=== PATIENT | female | born 1945 | race Hispanic/Latino ===

== ENCOUNTER 2018-06-30 09:37 | Inpatient (IN) | payer MEDICARE, OTHER ==
[2018-06-30 09:46] VITALS: BMI 29.2
[2018-06-30] MEDS: Morphine 4 mg/ml ISec IVP STA ×2 (10:58→11:21)
[2018-06-30] MEDS ORDERED: Oxycodone/Acetaminophen 5/325 mg Tab PO STA (11:15)
[2018-06-30 11:37] LABS: BASO # 0.01 K/mm3 (0.0-2.0); BASO % 0.1 % (0.0-3.0); EOS % 0.2 % (1.5-5.0); GRAN # 8.4 (1.4-6.5); GRAN % 87.2 % (50.0-68.0); HEMOGLOBIN 13.3 g/dL (12.0-16.0); LYMPH # 0.9 (1.2-3.4); LYMPH % 9.6 % (22.0-35.0); MEAN CELL VOLUME 87.2 fl (80.0-105.0); MEAN CORPUSCULAR HEMOGLOBIN 28.4 pg (25.0-35.0); MEAN CORPUSCULAR HGB CONC 32.6 g/dl (31.0-37.0); MEAN PLATELET VOLUME 9.1 fl (7.0-11.0); MONO # 0.3 (0.1-0.6); MONO % 2.9 % (1.0-6.0); RBC 4.68 10^6/uL (3.5-6.1); WHITE BLOOD COUNT 9.6 10^3/uL (4.5-11.0)
[2018-06-30 11:49] LABS: ALB/GLOB RATIO 1.2 (1.1-1.8); ALBUMIN 3.7 g/dL (3.0-4.8); ALT/SGPT 31 U/L (7-56); AST/SGOT 27 U/L (14-36); BLOOD UREA NITROGEN 26 mg/dL (7-21); CALCIUM 9.3 mg/dL (8.4-10.5); GFR NON-AFRICAN AMERICAN > 60
[2018-06-30 12:02] LABS: URINE BILIRUBIN NEGATIVE (NEGATIVE); URINE BLOOD SMALL (NEGATIVE); URINE GLUCOSE (UA) NEGATIVE (NEGATIVE); URINE LEUKOCYTE ESTERASE NEGATIVE Leu/uL (NEGATIVE); URINE PROTEIN NEGATIVE mg/dL (<30 mg/dL); URINE UROBILINOGEN 0.2 E.U./dL (<1 E.U./dL)
--- NOTE | 2018-06-30 12:04 | CT ---
Date of service: 06/30/2018 CT lumbar spine without IV contrast Indication: back pain Comparison: None available Technique: Noncontrast axial images of the lumbar spine were provided. Sagittal and coronal reformatted images were generated and reviewed. This CT exam was performed using 1 or more of the following dose reduction techniques: Automated exposure control, adjustment of the MAA and/or kV according to patient size, and/or use of iterative reconstruction technique. Total exam DLP: 1319.07 MGy-cm Findings: Atherosclerotic calcification of the aorta and branches. Diffuse osseous demineralization limits evaluation for acute fracture lines. Loss of height of L3 vertebral body, age indeterminate compression fracture deformity. Scoliosis of the lumbar spine convex the left. Intervertebral disc space narrowing most severe at L2-L3. Evidence of posterior disc bulges at L2-L3, L3-L4, L4-L5, and L5-S1. Paraspinal soft tissues appear unremarkable. Limited visualization of the intrathoracic and intra-abdominal contents: Partially imaged left lower lobe consolidation. Bibasilar atelectasis. Left calcified pleural plaque present suggesting asbestos related pleural disease. Cholecystectomy clips. Impression: Diffuse osseous demineralization. Loss of height of L3 vertebral body consistent with age indeterminate compression fracture deformity. MRI may be considered for further evaluation if indicated. Multilevel degenerative changes. Intervertebral disc space narrowing most severe at L2-L3. Evidence of posterior disc bulges at L2-L3, L3-L4, L4-L5, and L5-S1. MRI may be considered for further evaluation if indicated. Partially imaged left lower lobe consolidation. Left calcified pleural plaques suggest asbestos related pleural disease.
--- NOTE | 2018-06-30 12:20 | ED PDOC ---
Arrival/HPI - General Chief Complaint: Back Pain Historian: Patient - History of Present Illness Narrative History of Present Illness (Text): 06/30/18 12:00 73yo female with pmhx of hypothyroid, lupus, Lung CA who present with complaint of right buttocks pain that radiates to her lower leg. States she was seen at [facility] for the pain last week and after LS xray told she have sciatica. States she was given Tylenol with codeine, TOP Lidocaine, and flexeril. Notes that she took these medications, but the pain is worse. Reports inability to ambulate. States pain is worse with any type of movement. States she is unable to leave to bed secondary to the pain and her is unable to help her. She denies focal weakness, saddle anesthesia, ripping/tearing upper back pain, urinary/fecal incontinence, urinary symptoms, hematuria, fever, abdominal pain, nausea, any other complaint. Past Medical History - Provider Review Nursing Documentation Reviewed: Yes - Pulmonary Hx Lung Cancer: Yes Other/Comment: Pulmonary fibrosis - Endocrine/Metabolic Hx Hypothyroidism: Yes Hx Systemic Lupus Erythematosus: Yes - Psychiatric Hx Substance Use: No - Surgical History Hx Mastectomy: Yes (R breast CA/mastectomy) - Anesthesia Hx Anesthesia: Yes Hx Anesthesia Reactions: No Hx Malignant Hyperthermia: No Family/Social History - Physician Review Nursing Documentation Reviewed: Yes Family/Social History: Unknown Family HX Smoking Status: Never Smoked Hx Alcohol Use: No Hx Substance Use: No Allergies/Home Meds Allergies/Adverse Reactions: Allergies morphine Adverse Reaction (Mild, Verified 06/30/18 18:56) heart palpitations Home Medications: Home Meds Medication Instructions Recorded Confirmed Calcium Phosphate Trib/Vit D3 1 tab PO DAILY 06/30/18 06/30/18 [Citracal + D3 Gummies] RX: Anastrozole [Arimidex 1 mg Tab] 1 tab PO DAILY 06/30/18 06/30/18 RX: Azathioprine [Azasan] 50 mg PO TID 06/30/18 06/30/18 RX: Hydroxychloroquine Sulfate 200 mg PO DAILY 06/30/18 06/30/18 [Plaquenil] RX: Levothyroxine [Synthroid] 125 mcg PO DAILY 06/30/18 06/30/18 RX: amLODIPine [Norvasc] 5 mg PO DAILY 06/30/18 06/30/18 RX: predniSONE [predniSONE Tab] 10 mg PO TID 06/30/18 06/30/18 Review of Systems - Physician Review All systems were reviewed & negative as marked: Yes - Review of Systems Constitutional: Normal Eyes: Normal ENT: Normal Respiratory: Normal Cardiovascular: Normal Gastrointestinal: Normal Genitourinary Female: Normal Musculoskeletal: Back Pain Skin: Normal Neurological: Normal Endocrine: Normal Hemo/Lymphatic: Normal Psychiatric: Normal Physical Exam Vital Signs Reviewed: Yes Vital Signs Temp Pulse Resp BP Pulse Ox 06/30/18 09:49 98.6 F 83 18 134/78 100 Temperature: Afebrile Blood Pressure: Normal Pulse: Regular Respiratory Rate: Normal Appearance: Positive for: Well-Appearing, Non-Toxic, Comfortable Pain Distress: None Mental Status: Positive for: Alert and Oriented X 3 - Systems Exam Head: Present: Atraumatic, Normocephalic Pupils: Present: PERRL Extroacular Muscles: Present: EOMI Conjunctiva: Present: Normal Mouth: Present: Moist Mucous Membranes Neck: Present: Normal Range of Motion Respiratory/Chest: Present: Clear to Auscultation, Good Air Exchange. No: Respiratory Distress, Accessory Muscle Use Cardiovascular: Present: Regular Rate and Rhythm, Normal S1, S2. No: Murmurs Abdomen: No: Tenderness, Distention, Peritoneal Signs Back: Present: Pain with Leg Raise (Right leg). No: Midline Tenderness, Paraspinal Tenderness Upper Extremity: Present: Normal Inspection. No: Cyanosis, Edema Lower Extremity: Present: Normal Inspection. No: Edema Neurological: Present: GCS=15, CN II-XII Intact, Speech Normal Skin: Present: Warm, Dry, Normal Color. No: Rashes Psychiatric: Present: Alert, Oriented x 3, Normal Insight, Normal Concentration Medical Decision Making ED Course and Treatment: 06/30/18 18:58 73yo female [facility] for sharp constant right buttocks pain radiating to her lower leg. Decadron, Percocet, valium Labs UA LS CT EKG EKG On re evaluation pt continued to complain of pain. Unable to ambulate. Labs was unremarkable. She had blood in her UA. Urine culture added LS CT Findings: Atherosclerotic calcification of the aorta and branches. Diffuse osseous demineralization limits evaluation for acute fracture lines. Loss of height of L3 vertebral body, age indeterminate compression fracture deformity. Scoliosis of the lumbar spine convex the left. Intervertebral disc space narrowing most severe at L2-L3. Evidence of posterior disc bulges at L2-L3, L3-L4, L4-L5, and L5-S1. Paraspinal soft tissues appear unremarkable. Limited visualization of the intrathoracic and intra-abdominal contents: Partially imaged left lower lobe consolidation. Bibasilar atelectasis. Left calcified pleural plaque present suggesting asbestos related pleural disease. Cholecystectomy clips. Impression: Diffuse osseous demineralization. Loss of height of L3 vertebral body consistent with age indeterminate compression fracture deformity. MRI may be considered for further evaluation if indicated. Multilevel degenerative changes. Intervertebral disc space narrowing most severe at L2-L3. Evidence of posterior disc bulges at L2-L3, L3-L4, L4-L5, and L5-S1. MRI may be considered for further evaluation if indicated. Partially imaged left lower lobe consolidation. Left calcified pleural plaques suggest asbestos related pleural disease. PT will be admitted for inability to ambulate and intractable pain Case was DW Dr. Herrera, who is covering Dr. freeman and she accepted pt for admission. - Lab Interpretations Lab Results: 06/30/18 11:20 06/30/18 11:20 Lab Results 06/30/18 11:20: Sodium 138, Potassium 4.0, Chloride 101, Carbon Dioxide 30, Anion Gap 10, BUN 26 H, Creatinine 0.8, Est GFR ( Amer) > 60, Est GFR (Non-Af Amer) > 60, Random Glucose 89, Calcium 9.3, Total Bilirubin 0.8, AST 27, ALT 31, Alkaline Phosphatase 102, Total Protein 6.9, Albumin 3.7, Globulin 3.2, Albumin/Globulin Ratio 1.2 06/30/18 11:20: WBC 9.6, RBC 4.68, Hgb 13.3, Hct 40.8, MCV 87.2, MCH 28.4, MCHC 32.6, RDW 17.0 H, Plt Count 256, MPV 9.1, Gran % 87.2 H, Lymph % (Auto) 9.6 L, Boundary % (Auto) 2.9, Eos % (Auto) 0.2 L, Baso % (Auto) 0.1, Gran # 8.40 H, Lymph # (Auto) 0.9 L, Boundary # (Auto) 0.3, Eos # (Auto) 0.0, Baso # (Auto) 0.01 - RAD Interpretation Radiology Orders: 06/30/18 10:39 LUMBAR SPINE W/O CONTRAST [CT] Stat - Medication Orders Current Medication Orders: Discontinued Medications Dexamethasone (Decadron Inj) 10 mg IVP STAT STA Stop: 06/30/18 10:41 Last Admin: 06/30/18 10:57 Dose: 10 mg IVP Administration Document 06/30/18 10:57 ANN (Rec: 06/30/18 10:58 [email or web address]) Charges for Administration # of IVP Administrations 1 Diazepam (Valium) 5 mg PO ONCE ONE; Protocol Stop: 06/30/18 10:41 Last Admin: 06/30/18 10:57 Dose: 5 mg Morphine Sulfate (Morphine) 4 mg IVP STAT STA Stop: 06/30/18 10:40 Last Admin: 06/30/18 11:21 Dose: Not Given Non-Admin Reason: Patient Refused Oxycodone/Acetaminophen (Percocet 5/325 Mg Tab) 1 tab PO STAT STA Stop: 06/30/18 11:16 Last Admin: 06/30/18 11:36 Dose: 1 tab MAR Pain Assessment Document 06/30/18 11:36 ANN (Rec: 06/30/18 11:37 [email or web address]) Pain Reassessment Is this a pain reassessment? Yes Presence of Pain Presence of Pain Yes Pain Scale Used Protocol: PSCALES Pain Scale Used Numeric Location Left, Right or Bilateral Right Upper or Lower Lower Pain Location Body Site Back Description Intensity of Pain at present 10 Disposition/Present on Arrival - Present on Arrival Any Indicators Present on Arrival: No History of DVT/PE: No History of Uncontrolled Diabetes: No Urinary Catheter: No History of Decub. Ulcer: No History Surgical Site Infection Following: None - Disposition Have Diagnosis and Disposition been Completed?: Yes Diagnosis: Intractable back pain, Unable to ambulate Disposition: HOSPITALIZED Disposition Time: 12:40 Patient Plan: Admission Patient Problems: Current Active Problems Problem Status Onset Intractable back pain Acute Unable to ambulate Acute Condition: FAIR
[2018-06-30 12:30] LABS: URINE APPEARANCE CLEAR (CLEAR); URINE COLOR YELLOW (YELLOW)
[2018-06-30 12:32] LABS: INR 1.03; PROTHROMBIN TIME 11.9 SECONDS (9.4-12.5)
[2018-06-30 12:37] LABS: URINE BACTERIA MOD (NEG); URINE WBC 0 - 2 /hpf (0-6)
[2018-06-30] MEDS ORDERED: Sodium Chloride 0.9% 1,000 ML IV STA (12:47)
[2018-06-30] MEDS ORDERED: Morphine 2 mg/ml ISec IVP PRN (15:34)
[2018-06-30] MEDS ORDERED: Levothyroxine 125 MCG TAB PO SCH (15:45)
[2018-06-30] MEDS ORDERED: Oxycodone/Acetaminophen 5/325 mg Tab PO PRN (16:08)
[2018-06-30] MEDS ORDERED: Dexamethasone 4 MG in Sodium Chloride 0.9% 50 ML IV ONE (17:18)
[2018-06-30] MEDS: Lidocaine 5% Patch TD SCH (17:50)
--- NOTE | 2018-06-30 20:45 | CON ---
DATE OF CONSULTATION: 06/30/2018 CHIEF COMPLAINT: Back pain. HISTORY OF PRESENT ILLNESS: This is a 73-year-old woman with history of hypothyroidism, lupus, lung cancer in the past, who presented with low back pain radiating down the right buttock, down the right leg, waking with paresthesias. Her low back pain is aggravated by prolonged positions. She was given Tylenol with Codeine, topical lidocaine, and Flexeril, which helped seldomly, but the pain started to get worse, associated with prolonged positions and bending. She has had a CAT scan of the lumbosacral spine, which showed diffuse degenerative disk disease at multiple levels from L2 to L5. She is able to lift up her legs. There is no focal weakness of the hip flexors or lower extremities. She is currently on Percocet for pain and morphine. She has Plaquenil for her lupus, longstanding. PAST MEDICAL HISTORY: As above. SOCIAL HISTORY: No illicit drug use, smoking, or EtOH abuse. ALLERGIES: NO KNOWN DRUG ALLERGIES. MEDICATIONS: Reviewed by nurses' reconciliation sheet. FAMILY HISTORY: Noncontributory. REVIEW OF SYSTEMS: Fourteen-point review of systems is negative except as per the HPI. LABORATORY DATA: Sodium is 138, potassium 4, chloride 101, carbon dioxide 30, BUN of 26, creatinine of 0.8, random glucose of 89. PHYSICAL EXAMINATION VITAL SIGNS: Temperature of 99, pulse rate 60, blood pressure 156/76, respiratory rate 20, oxygen saturation 97% on room air. GENERAL: The patient is sitting up in bed, in no acute distress. HEENT: Head is atraumatic, normocephalic. PERRLA. Extraocular muscles intact. NECK: Supple. No JVD. No adenopathy noted. LUNGS: Clear to auscultation. No adventitious sounds. HEART: S1 and S2, normal rate and rhythm. No murmurs, rubs or gallops. ABDOMEN: Soft, nontender and nondistended. Bowel sounds present. EXTREMITIES: No clubbing. No cyanosis. Peripheral pulses 2+ felt bilaterally. NEUROLOGIC: The patient is alert and oriented to person, place, month and year. Speech is fluent without any errors. Cranial nerves II through XII intact. Motor exam: Moves all extremities equally. No pronator drift seen. Sensory exam: Light touch, pinprick, proprioception, and vibration are intact, except for some evident decreased vibration of the toes with mild neuropathy from the long history of lupus. DTRs are 2+ throughout and 1 at both knees and ankles. Coordination: [id number] intact. No dysmetria noted. Musculoskeletal: She has lumbosacral tightness. IMPRESSION: Low back pain is secondary to chronic lumbosacral neuritis from multilevel degenerative disk disease from L1 to S1. At this time, we recommend: 1. Dexamethasone IV push 4 mg to decrease the intensity of pain. 2. Lyrica 50 mg p.o. b.i.d. for neuropathic relief. 3. Physical therapy as an outpatient for lumbosacral stretch, therapeutic exercise, and myofascial pain relief techniques. 4. MRI of the lumbosacral spine. Follow up with us in outpatient office. Thank you for this consult. Freddie Holly MD
--- NOTE | 2018-07-01 01:06 | CP.PCM.PN ---
Subjective - Date & Time of Evaluation Date of Evaluation: 07/01/18 Time of Evaluation: 01:05 - Subjective Subjective: # 22 angiocath was inserted inleft hand. Objective - Vital Signs/Intake and Output Vital Signs (last 24 hours): Temp Pulse Resp BP Pulse Ox 97.7 F 54 L 16 147/75 98 07/01/18 00:00 07/01/18 00:00 07/01/18 00:00 07/01/18 00:00 07/01/18 00:00 - Medications Medications: Current Medications Amlodipine Besylate (Norvasc) 5 mg PO DAILY [facility] Last Admin: 06/30/18 16:20 Dose: Not Given Hydroxychloroquine Sulfate (Plaquenil) 200 mg PO DAILY [facility]; Protocol Levothyroxine Sodium (Synthroid) 125 mcg PO DAILY [facility] Last Admin: 06/30/18 16:21 Dose: Not Given Lidocaine (Lidoderm) 1 ea TD DAILY [facility] Last Admin: 06/30/18 17:50 Dose: 1 ea Morphine Sulfate (Morphine) 2 mg IVP Q4H PRN PRN Reason: Pain, moderate (4-7) Oxycodone/Acetaminophen (Percocet 5/325 Mg Tab) 1 tab PO Q4H PRN PRN Reason: Pain, Mild (1-3) Stop: 07/03/18 16:09 Prednisone (Prednisone Tab) 20 mg PO DAILY [facility] Pregabalin (Lyrica) 50 mg PO BID [facility] Last Admin: 06/30/18 17:49 Dose: 50 mg - Labs Labs: 06/30/18 11:20 06/30/18 11:20 PT 11.9 SECONDS (9.4-12.5) 06/30/18 11:20 INR 1.03 06/30/18 11:20 APTT 21.0 Seconds (25.1-36.5) L 06/30/18 11:20
[2018-07-01] MEDS ORDERED: Levothyroxine 125 MCG TAB PO ONE (08:30)
[2018-07-01] MEDS: Lidocaine 5% Patch TD SCH (09:28)
--- NOTE | 2018-07-01 10:29 | HP ---
DATE OF EXAM: 06/30/2018 HISTORY OF PRESENT ILLNESS: Ms. Ramos is a 73-year-old female presented to the ED with right buttock pain radiating to the right leg. She has history of lung cancer. She was admitted to [facility] for similar pain last week, and she was told that she has sciatica. She was given Tylenol, codeine and muscle relaxant. She is unable to ambulate because of the pain. No fecal incontinence. No urinary incontinence. No fever, no cough with expectoration. Hypothyroidism, currently controlled with current medications. She also has history of lupus, no active issues. History of pulmonary fibrosis, currently on steroids. Sees the Pulmonary at [place]. PAST MEDICAL HISTORY: Pulmonary fibrosis, lung cancer, breast cancer in remission status post right-sided mastectomy. PAST SURGICAL HISTORY: Right mastectomy. FAMILY HISTORY: Noncontributory. PERSONAL HISTORY: Never smoked. No history of alcohol abuse. ALLERGIES: MORPHINE CAUSES PALPITATIONS. HOME MEDICATIONS: Calcium, Arimidex 1 mg, azathioprine 50 mg p.o. 3 times daily, hydroxychloroquine 200 mg daily, Synthroid 125 mcg daily, amlodipine 5 mg daily, prednisone 10 mg p.o. 3 times daily. REVIEW OF SYSTEMS: As per HPI. Rest of 12 point review of systems reviewed, negative. PHYSICAL EXAMINATION: GENERAL: Comfortable in bed, in no acute distress. VITAL SIGNS: Temperature 98.6, heart rate 83 per minute, respiratory rate 18 per minute, blood pressure 130/78. HEENT: Pallor positive. NECK: No lymphadenopathy. CHEST: Air entry present and equal bilaterally. No added sound. CARDIOVASCULAR: S1, S2 normal. No murmur. No gallop. ABDOMEN: Soft, nontender. No hepatosplenomegaly. EXTREMITIES: No edema. SKIN: Warm and dry. NEUROLOGIC: Alert, oriented x3. No focal sensory motor deficits. Speech normal. Gait unable to ambulate. CT spine, diffuse demineralization, loss of height of L2 vertebral body with compression fracture, multilevel degenerative disease. LABORATORY DATA: White count 9.6, hemoglobin 13.3, hematocrit 40.8, platelet count 256,000. Sodium 138, potassium 4, BUN 26, creatinine 0.8 and glucose 89. ASSESSMENT: 1. Intractable back pain. 2. History of lung cancer. 3. History of breast cancer. 4. Lupus. 5. Hypothyroidism. PLAN: She will be admitted to the hospital. Pain control with morphine 2 mg IV every 4 hours, Percocet for moderate pain 5/325 every 4 hours p.r.n. We will give prednisone 20 mg daily, doses could not be confirmed. With Pulmonary, she does not have anymore contact information of the Pulmonary doctor. Neurology consultation, Dr. Holly requested for sciatica, rule out spinal abnormality. Lyrica was started 500 mg p.o. twice daily, Synthroid 125 mcg daily. We will continue Plaquenil 200 mg daily. We will do SPEP immunofixation, kappa lambda light chain assay. Mimi Herrera MD
--- NOTE | 2018-07-01 23:38 | CON ---
DATE OF CONSULTATION: 07/01/2018 REFERRING PHYSICIAN: Mimi Herrera MD REASON FOR CONSULTATION: Chronic obstructive lung disease, history of recurrent lung cancer. HISTORY OF PRESENT ILLNESS: This is a 73-year-old female with known history of pulmonary fibrosis, history of lung nodule, requiring wedge resection, has a recurrent of another nodule, ended up with radiation therapy, also had a breast cancer, had a mastectomy. She has a severe obstructive lung disease, being followed by Dr. De Jesus at [facility]. According to the patient, she has been on and off steroids all her life. Recently, with worsening lung function, her prednisone was started at 60 mg and tapered down to 40. Now comes in to [facility] with radiculopathy. Also complaining about shortness of breath. Does have snoring, daytime sleepy and tired, may have GERD. PAST MEDICAL HISTORY: Pulmonary fibrosis, lung cancer, breast cancer, may have GERD, suspected sleep apnea syndrome. FAMILY HISTORY: No significant cardiopulmonary disease reported. SOCIAL HISTORY No active smoking. No alcohol use. MEDICATIONS: She is on Arimidex 1 mg daily, Colace 100 mg daily, Iris 150 mg daily, lidocaine patch, Lyrica 50 mg twice a day, morphine 2 mg every 4 hours p.r.n., Norvasc 5 mg daily, Percocet 5/324 one tablet every 4 hours p.r.n., Plaquenil 200 mg daily, prednisone 20 mg daily, Protonix 40 mg daily, Synthroid 125 mcg a.c.b. ALLERGIES: MORPHINE. REVIEW OF SYSTEMS: No headache, no rhinitis. Short of breath with exertion. No chest pain. No nausea. Admits to have GERD. No abdominal pain. Has a right buttock and leg discomfort. No dysuria. PHYSICAL EXAMINATION: GENERAL: No acute distress. VITAL SIGNS: Temperature is 98, heart rate 70, respiratory rate is 20, blood pressure 138/74, pulse ox 97% room air. HEENT: Moist mucous membranes. Crowded airway. Mallampati score is 4. NECK: Supple. No JVD. LUNGS: Have fair airflow with few rhonchi. HEART: S1 and S2. ABDOMEN: Soft, nontender, no organomegaly. EXTREMITIES: Has a left side of the buttock tenderness. Extremities, there is no edema. NEUROLOGIC: Awake, alert, follows simple commands. LABORATORY DATA: Hemoglobin 13.3, hematocrit 40.8, WBC 9.6, platelet count is 256. INR 1.03. PTT 21. Sodium 138, potassium 4.0, chloride 101, bicarbonate 30, BUN 26, creatinine 0.8, glucose is 89, calcium is 9.3. AST 27, ALT 31, alk phos is 102. Total protein is 6.9, albumin 3.7, globulin is 3.2. Urinalysis shows wbc 0-2, rbc 10-15. Has a CT of the lumbar spine done, which shows diffuse osseus demineralization, loss of height of L3 vertebral body consistent with ELEONORA, determinate compression fracture deformity. MRI may be considered for further evaluation. Has multivessel degenerative changes with disk space narrowing. Also partially imaged left lower lobe consolidation. There is also calcified pleural plaque suggesting of asbestos exposure in the past. IMPRESSION AND PLAN: Chronic obstructive lung disease, carried diagnosis of pulmonary fibrosis, history of lung cancer requiring wedge resection, has a recurrent tumor requiring radiation to the lung, also has a breast cancer requiring mastectomy, hypothyroid, also carries diagnosis of lupus. Case discussed with Dr. Herrera. Agree with decreasing the prednisone to 20 mg daily. Continue rest of immunosuppressive medication. I guess it is mostly for lupus, not for the pulmonary fibrosis. She may have a component of gastroesophageal reflux disease and sleep apnea. We will suggest getting attended sleep study upon discharge as outpatient and may need to follow up PFT. Continue pain management. Careful with sedation. Gastric prophylaxis. We will also start DVT prophylaxis. Thank you and we will follow with you. Connie Medrano MD
[2018-07-02] MEDS: Pantoprazole 40 mg EC Tab PO SCH (05:18)
[2018-07-02] MEDS: Lidocaine 5% Patch TD SCH (10:06)
[2018-07-02] MEDS: Enoxaparin 40 mg Syringe SC SCH (10:07)
[2018-07-02] MEDS: Levothyroxine 125 MCG TAB PO SCH (10:11)
--- NOTE | 2018-07-02 10:15 | CP.PCM.PN ---
<Pastor Epstein - Last Filed: 07/02/18 15:46> Subjective - Date & Time of Evaluation Date of Evaluation: 07/02/18 Time of Evaluation: 07:20 - Subjective Subjective: Progress Note for Dr. Armando Service Patient seen and examined at bedside. No acute events reported overnight. This AM, reports some limited ambulation 2/2 pain, more pain than yesterday, when she feels that she was able to ambulate much better than today. MAR reviewed, still has not received/requested IV pain medications. Objective - Vital Signs/Intake and Output Vital Signs (last 24 hours): Temp Pulse Resp BP Pulse Ox 98.4 F 68 20 138/75 96 07/02/18 08:48 07/02/18 08:48 07/02/18 08:48 07/02/18 08:48 07/02/18 08:48 Intake and Output: 07/02/18 07/02/18 06:59 18:59 Intake Total 120 Output Total 300 Balance -180 - Medications Medications: Current Medications Amlodipine Besylate (Norvasc) 5 mg PO DAILY [facility] Last Admin: 07/01/18 09:27 Dose: 5 mg Anastrozole (Arimidex 1 Mg Tab) 1 mg PO DAILY [facility] Azathioprine (Imuran) 150 mg PO DAILY [facility] Last Admin: 07/01/18 14:41 Dose: 150 mg Docusate Sodium (Colace) 100 mg PO DAILY [facility] Last Admin: 07/01/18 17:49 Dose: 100 mg Enoxaparin Sodium (Lovenox) 40 mg SC DAILY [facility]; Protocol Hydroxychloroquine Sulfate (Plaquenil) 200 mg PO DAILY [facility]; Protocol Last Admin: 07/01/18 09:27 Dose: 200 mg Levothyroxine Sodium (Synthroid) 125 mcg PO ACB [facility] Lidocaine (Lidoderm) 1 ea TD DAILY [facility] Last Admin: 07/01/18 09:28 Dose: 1 ea Morphine Sulfate (Morphine) 2 mg IVP Q4H PRN PRN Reason: Pain, moderate (4-7) Oxycodone/Acetaminophen (Percocet 5/325 Mg Tab) 1 tab PO Q4H PRN PRN Reason: Pain, Mild (1-3) Stop: 07/03/18 16:09 Last Admin: 07/02/18 05:48 Dose: 1 tab Pantoprazole Sodium (Protonix Ec Tab) 40 mg PO 0600 [facility] Last Admin: 07/02/18 05:18 Dose: 40 mg Prednisone (Prednisone Tab) 20 mg PO DAILY [facility] Last Admin: 07/01/18 09:27 Dose: 20 mg Pregabalin (Lyrica) 50 mg PO BID [facility] Last Admin: 07/01/18 17:49 Dose: 50 mg - Labs Labs: 06/30/18 11:20 06/30/18 11:20 PT 11.9 SECONDS (9.4-12.5) 06/30/18 11:20 INR 1.03 06/30/18 11:20 APTT 21.0 Seconds (25.1-36.5) L 06/30/18 11:20 - Constitutional Appears: Non-toxic, No Acute Distress - Head Exam Head Exam: ATRAUMATIC, NORMAL INSPECTION, NORMOCEPHALIC - Eye Exam Eye Exam: EOMI, Normal appearance. absent: Conjunctival injection, Scleral icterus Pupil Exam: absent: Irregular, Unequal - ENT Exam ENT Exam: Mucous Membranes Moist - Neck Exam Neck Exam: Full ROM, Normal Inspection - Respiratory Exam Respiratory Exam: Clear to Ausculation Bilateral, NORMAL BREATHING PATTERN. absent: Accessory Muscle Use, Chest Wall Tenderness, Decreased Breath Sounds, Rales, Rhonchi, Wheezes - Cardiovascular Exam Cardiovascular Exam: REGULAR RHYTHM, RRR, +S2. absent: Bradycardia, Tachycardia, JVD - GI/Abdominal Exam GI & Abdominal Exam: Soft. absent: Distended, Firm, Rigid, Tenderness, Diminis hed Bowel Sounds, Hyperactive Bowel Sounds, Hypoactive Bowel Sounds - Extremities Exam Extremities Exam: Full ROM, Normal Inspection. absent: Calf Tenderness, Pedal Edema, Tenderness - Back Exam Back Exam: absent: CVA tenderness (L), CVA tenderness (R) Additional comments: tenderness to palpation at lower lumbar region, static pain worsened with palpation, no tenderness with palpation or compression at bilateral CVA or hip regions, lumbar palpation does not specifically trigger shooting pain down right or left legs - Neurological Exam Additional comments: awake and alert, moving all extremities spontaneously and on commands, motor grossly intact and equal bilaterally, leans right laterally to alleviate right hip pain but able to straighten up on command, no appreciable focal right-sided weakness - Psychiatric Exam Psychiatric exam: Normal Affect, Normal Mood - Skin Skin Exam: Dry, Intact, Normal Color, Warm Assessment and Plan - Assessment and Plan (Free Text) Assessment: This is a 73 yo F with PMH of hypothyroidism, lupus, lung fibrosis, breast cancer (remission), lung cancer, and possible DOROTA/GERD presenting with complaint of right-sided intractable back pain radiating into her right leg. Imaging obtained after arrival is notable for chronic compression fracture of L3, and severe degenerative disc disease from L2 - L5. Plan: 1) Intractable right-sided back pain with radiation to right leg -most likely 2/2 compression fracture of L3 Ddx for compression fracture: osteoperosis vs 2/2 bony mets from cancer -tolerating PO medications, no usage of IV pain control, and ambulating, so no need for vertebroplasty/kyphoplasty -Lumbar MRI obtained, notable for chronic appearing compression deformity of L3 and severe disc degeneration from L2-5 -Continue current pain control regimen -As per Neuro, this is likely chronic lumbosacral neuritis 2/2 multi-level degenerative disc disease S/p Dexamethasone IV x1 as per Neuro, recs PT eval and likely outpt PT -Pending PT eval and recs -Start on Vit D, Calcium for compression fracture, will need outpatient ost eopersosis workup after discharge 2) Lung Fibrosis -as per Pulm, home steroids reduced to 20mg PO Prednisone daily -sleep study and pfts as outpatient 3) Chronic conditions -Lupus: continue home regimen -Hypothyroid: continue synthroid -Hx Breast cancer: continue arimidex Dispo: pending PT eval and recs, likely outpt PT Ppx: Protonix for GI, Lovenox SC for DVT Reviewed and discussed with attending, Dr. Armando <Blaine Armando S - Last Filed: 07/02/18 21:43> Objective - Vital Signs/Intake and Output Vital Signs (last 24 hours): Temp Pulse Resp BP Pulse Ox 98.4 F 71 20 130/64 98 07/02/18 16:28 07/02/18 16:28 07/02/18 16:28 07/02/18 16:28 07/02/18 16:28 Intake and Output: 07/02/18 07/03/18 18:59 06:59 Intake Total 560 Balance 560 - Medications Medications: Current Medications Amlodipine Besylate (Norvasc) 5 mg PO DAILY [facility] Last Admin: 07/02/18 10:09 Dose: 5 mg Anastrozole (Arimidex 1 Mg Tab) 1 mg PO DAILY [facility] Last Admin: 07/02/18 18:56 Dose: 1 mg Azathioprine (Imuran) 150 mg PO DAILY [facility] Last Admin: 07/02/18 10:05 Dose: 150 mg Calcium Carbonate (Caltrate) 600 mg PO DAILY [facility] Last Admin: 07/02/18 18:56 Dose: 600 mg Docusate Sodium (Colace) 100 mg PO DAILY [facility] Last Admin: 07/02/18 10:04 Dose: 100 mg Enoxaparin Sodium (Lovenox) 40 mg SC DAILY [facility]; Protocol Last Admin: 07/02/18 10:07 Dose: 40 mg Ergocalciferol (Drisdol 50,000 Intl Units Cap) 1 cap PO Q7D [facility] Last Admin: 07/02/18 18:56 Dose: 1 cap Hydroxychloroquine Sulfate (Plaquenil) 200 mg PO DAILY [facility]; Protocol Last Admin: 07/02/18 10:10 Dose: 200 mg Levothyroxine Sodium (Synthroid) 125 mcg PO ACB [facility] Last Admin: 07/02/18 10:11 Dose: 125 mcg Lidocaine (Lidoderm) 1 ea TD DAILY [facility] Last Admin: 07/02/18 10:06 Dose: 1 ea Morphine Sulfate (Morphine) 2 mg IVP Q4H PRN PRN Reason: Pain, moderate (4-7) Oxycodone/Acetaminophen (Percocet 5/325 Mg Tab) 1 tab PO Q4H PRN PRN Reason: Pain, Mild (1-3) Stop: 07/03/18 16:09 Last Admin: 07/02/18 05:48 Dose: 1 tab Pantoprazole Sodium (Protonix Ec Tab) 40 mg PO 0600 [facility] Last Admin: 07/02/18 05:18 Dose: 40 mg Prednisone (Prednisone Tab) 20 mg PO DAILY [facility] Last Admin: 07/02/18 10:30 Dose: 20 mg Pregabalin (Lyrica) 75 mg PO BID [facility] Last Admin: 07/02/18 18:56 Dose: 75 mg - Labs Labs: 06/30/18 11:20 06/30/18 11:20 PT 11.9 SECONDS (9.4-12.5) 06/30/18 11:20 INR 1.03 06/30/18 11:20 APTT 21.0 Seconds (25.1-36.5) L 06/30/18 11:20 Assessment and Plan - Assessment and Plan (Free Text) Plan: Pt seen and examined. I have reviewed the note of the medical secretary teacher and agree with it. I have discussed the assessment and plan with the resident. I have reviewed the patient's labs and medications. Pt with acute back pain due to L3 fracture. She will need PT and pain control. She is on Prednisone daily and is her risk factor for osteoporosis. She will continue with synthroid for her hypothyroidism.
--- NOTE | 2018-07-02 14:11 | MRI ---
Date of service: 07/01/2018 PROCEDURE: MR LUMBAR SPINE WITHOUT CONTRAST HISTORY: lumbosacral pain COMPARISON: None available. TECHNIQUE: Multiecho multiplanar sequences were performed through the lumbar spine without the use of intravenous contrast. FINDINGS: Normal lumbar lordosis. Chronic appearing compression deformity of L3 Marrow signal unremarkable. Conus medullaris unremarkable at the level of Paraspinal soft tissues are unremarkable. T12-L1: Disc degeneration with small central disc protrusion L1-2: No disc herniation, spinal canal stenosis or neural foraminal narrowing. L2-3: Severe disc degeneration. Mild asymmetric disc bulge to the right. L3-4: Severe disc degeneration with moderate disc bulge. Mild central stenosis L4-5: Moderate facet arthropathy. Mild disc degeneration. Mild central stenosis L5-S1: Disc degeneration and severe facet arthropathy without stenosis OTHER FINDINGS: The report concurs with the preliminary [facility] report IMPRESSION: Multilevel disc degeneration. See comments for details
[2018-07-02 16:29] VITALS: O2SAT 98
[2018-07-02] MEDS ORDERED: Ergocalciferol 50,000 Intl Units Cap PO SCH (16:30)
--- NOTE | 2018-07-02 17:03 | CON ---
DATE: 07/02/2018 CHIEF COMPLAINT: Follow up for back pain. Today, the patient is seen and examined at bedside. Having less back pain than before but still has it. She underwent MRI of the lumbosacral spine which showed multilevel disk degeneration, severe L3-L4 with moderate disc bulge and mild central stenosis as well as at L4-L5. In addition there is severe facet arthropathy without stenosis at L5-S1. She is on Lyrica 50 mg by mouth twice daily, which should help with the nerve pain, which we will increase to 75 mg by mouth twice daily, in addition to a Lidoderm patch, we will recommend outpatient physical therapy. She is going to follow up with [facility], since she has two new pulmonary nodules. PAST MEDICAL HISTORY: History of hypothyroidism, lupus and lung cancer in the past. SOCIAL HISTORY: No illicit drug use, smoking, or EtOH abuse. REVIEW OF SYSTEMS: A 14-point review of systems as per the HPI. FAMILY HISTORY: Noncontributory. MEDICATIONS: Reviewed by nurse's reconciliation sheet. PHYSICAL EXAMINATION: GENERAL: The patient is sitting up on bed, in no acute distress. VITAL SIGNS: Temperature 98.4, pulse rate 68, blood pressure 138/75, respiratory rate 20, oxygen saturation 96% on room air. HEENT: Atraumatic and normocephalic. PERRLA. Extraocular muscles intact. NECK: Supple. No JVD. No adenopathy noted. LUNGS: Clear to auscultation. No adventitious sounds. HEART: S1 and S2. Normal rate and rhythm. No murmurs, rubs or gallops. ABDOMEN: Soft, nontender, and nondistended. Bowel sounds are present. EXTREMITIES: No clubbing. No cyanosis. Peripheral pulses 2+ felt bilaterally. NEUROLOGIC: The patient is alert and oriented to person, place, mouth and year. Recall after 5 minutes is 2/3. Poor attention span and slow thought process. Cranial nerves II through XII intact. Speech is fluent without any errors. Motor Exam: Moves all extremities equally. No pronator drift is seen. Sensory Exam: Light touch, pinprick, proprioception and vibration are intact, except for decreased vibration of the toes with some mild neuropathy from longstanding history of lupus. DTRs are 2+ throughout, 1 at both knees and ankles. Coordination: Elysfo-bi-vuby intact. No dysmetria noted. Musculoskeletal: She has lumbosacral tightness. LABORATORY DATA: No new labs done today. IMPRESSION: Low back pain secondary to chronic lumbosacral neuritis, some underlying multilevel disk degenerative disease seen on the MRI basically from L3 to S1. RECOMMENDATIONS: At this time we recommend: 1. Increase Lyrica to 75 mg by mouth twice daily for neuropathic relief. 2. Outpatient physical therapy for lumbosacral stretching. Therapeutic exercise, TENS unit, ultrasound. 3. Myofascial pain relief techniques through ultrasound therapy. 4. Continue current and will follow up as an outpatient. Freddie Holly MD
--- NOTE | 2018-07-03 00:33 | PN ---
DATE: 07/02/2018 PULMONARY PROGRESS NOTE REFERRING PHYSICIAN: Dr. Armando. SUBJECTIVE: She is lying in the bed, head at 45 degrees. Night was unremarkable. Breathing is okay. No chest pain. No nausea. No vomiting. Low back pain. No leg pain or leg swelling. OBJECTIVE: GENERAL: No acute distress. VITAL SIGNS: Temperature 98, heart rate 71, respiratory rate is 20, blood pressure 130/64, pulse ox 98% on room air. HEENT: Moist mucous membranes. Crowded airway. Mallampati score is 4. NECK: Supple. No JVD. LUNGS: Have fair airflow with rhonchi. HEART: S1 and S2. ABDOMEN: Soft, nontender. No organomegaly. EXTREMITIES: No edema. NEUROLOGIC: Awake, alert. Follows simple command. MEDICATIONS: She is on Arimidex 1 mg daily, calcium carbonate 600 mg daily, Colace 100 mg daily, vitamin D 50,000 units every 7 days, azathioprine 150 mg daily, lidocaine patch daily, Lovenox 40 mg subcu daily, Lyrica 75 mg twice a day, morphine 2 mg every 4 hours p.r.n., Norvasc 5 mg daily, Percocet 5/225 one tablet every 4 hours p.r.n., Plaquenil 200 mg daily, prednisone 20 mg daily, Protonix 40 mg daily, Synthroid 125 mcg before breakfast. IMPRESSION AND PLAN: Chronic obstructive lung disease; history of pulmonary fibrosis; history of lung cancer, requiring wedge resection and also radiation therapy at one point; history of breast cancer, requiring mastectomy; hypothyroid; also with diagnosis of lupus. Case discussed with the patient's at bedside. All the questions were answered. According to , her registered nurse ambulatory at [facility], Dr. De Jesus, just called them today and told them that there is a new nodule in the lung, suspected lung cancer and was told she is not a radiation candidate, she probably needs chemotherapy and she is not a candidate for resection. I did not see CAT myself, requested the patient's to get report of CT of the chest to see, and the patient should be seen by oncologist. Pulmonary point of view, I will continue 20 mg of prednisone for now. Hopefully, we can taper dose slowly. Inhaled bronchodilator. Gastric prophylaxis. Sleep apnea precaution. Definitely needs sleep study and pulmonary function tests as an outpatient. Gastric and deep venous thrombosis prophylaxis. Pain management. Thank you and we will follow with you. Connie Medrano MD
[2018-07-03] MEDS: Pantoprazole 40 mg EC Tab PO SCH (05:44)
--- NOTE | 2018-07-03 07:19 | CP.PCM.PN ---
Objective - Vital Signs/Intake and Output Vital Signs (last 24 hours): Temp Pulse Resp BP Pulse Ox 98.4 F 71 20 130/64 98 07/02/18 16:28 07/02/18 16:28 07/02/18 16:28 07/02/18 16:28 07/02/18 16:28 Intake and Output: 07/03/18 07/03/18 06:59 18:59 Intake Total 120 Balance 120 - Medications Medications: Current Medications Amlodipine Besylate (Norvasc) 5 mg PO DAILY [facility] Last Admin: 07/02/18 10:09 Dose: 5 mg Anastrozole (Arimidex 1 Mg Tab) 1 mg PO DAILY [facility] Last Admin: 07/02/18 18:56 Dose: 1 mg Azathioprine (Imuran) 150 mg PO DAILY [facility] Last Admin: 07/02/18 10:05 Dose: 150 mg Calcium Carbonate (Caltrate) 600 mg PO DAILY [facility] Last Admin: 07/02/18 18:56 Dose: 600 mg Docusate Sodium (Colace) 100 mg PO DAILY [facility] Last Admin: 07/02/18 10:04 Dose: 100 mg Enoxaparin Sodium (Lovenox) 40 mg SC DAILY [facility]; Protocol Last Admin: 07/02/18 10:07 Dose: 40 mg Ergocalciferol (Drisdol 50,000 Intl Units Cap) 1 cap PO Q7D [facility] Last Admin: 07/02/18 18:56 Dose: 1 cap Hydroxychloroquine Sulfate (Plaquenil) 200 mg PO DAILY [facility]; Protocol Last Admin: 07/02/18 10:10 Dose: 200 mg Levothyroxine Sodium (Synthroid) 125 mcg PO ACB [facility] Last Admin: 07/02/18 10:11 Dose: 125 mcg Lidocaine (Lidoderm) 1 ea TD DAILY [facility] Last Admin: 07/02/18 10:06 Dose: 1 ea Morphine Sulfate (Morphine) 2 mg IVP Q4H PRN PRN Reason: Pain, moderate (4-7) Oxycodone/Acetaminophen (Percocet 5/325 Mg Tab) 1 tab PO Q4H PRN PRN Reason: Pain, Mild (1-3) Stop: 07/03/18 16:09 Last Admin: 07/02/18 05:48 Dose: 1 tab Pantoprazole Sodium (Protonix Ec Tab) 40 mg PO 0600 [facility] Last Admin: 07/03/18 05:44 Dose: Not Given Prednisone (Prednisone Tab) 20 mg PO DAILY [facility] Last Admin: 07/02/18 10:30 Dose: 20 mg Pregabalin (Lyrica) 75 mg PO BID [facility] Last Admin: 07/02/18 18:56 Dose: 75 mg - Labs Labs: 06/30/18 11:20 06/30/18 11:20 PT 11.9 SECONDS (9.4-12.5) 06/30/18 11:20 INR 1.03 06/30/18 11:20 APTT 21.0 Seconds (25.1-36.5) L 06/30/18 11:20
[2018-07-03 08:26] VITALS: BP 139/71; PULSE 56; RESP 18; TEMP 97.9
[2018-07-03] MEDS: Lidocaine 5% Patch TD SCH (10:17)
[2018-07-03] MEDS: Enoxaparin 40 mg Syringe SC SCH (10:22)
[2018-07-03] MEDS: Levothyroxine 125 MCG TAB PO SCH (10:25)
--- NOTE | 2018-07-03 10:59 | CP.PCM.DIS ---
<Pastor Epstein - Last Filed: 07/03/18 21:58> Provider - Provider Date of Admission: 07/02/18 17:01 Attending physician: Blaine Armando MD Primary care physician: Mike Coppola MD Consults: Neuro: Avni Pulm: Marcela Time Spent in preparation of Discharge (in minutes): 35 Diagnosis - Discharge Diagnosis (1) Lupus Status: Chronic Priority: High (2) Pulmonary fibrosis Status: Chronic Priority: High (3) Intractable back pain Status: Acute Priority: High (4) Unable to ambulate Status: Resolved Priority: Medium Hospital Course - Lab Results Lab Results: Micro Results 06/30/18 11:42 Urine Urine Culture - Final No Growth (<1,000 CFU/ML) Most Recent Lab Values WBC 9.6 10^3/uL (4.5-11.0) 06/30/18 11:20 RBC 4.68 10^6/uL (3.5-6.1) 06/30/18 11:20 Hgb 13.3 g/dL (12.0-16.0) 06/30/18 11:20 Hct 40.8 % (36.0-48.0) 06/30/18 11:20 MCV 87.2 fl (80.0-105.0) 06/30/18 11:20 MCH 28.4 pg (25.0-35.0) 06/30/18 11:20 MCHC 32.6 g/dl (31.0-37.0) 06/30/18 11:20 RDW 17.0 % (11.5-14.5) H 06/30/18 11:20 Plt Count 256 10^3/uL (120.0-450.0) 06/30/18 11:20 MPV 9.1 fl (7.0-11.0) 06/30/18 11:20 Gran % 87.2 % (50.0-68.0) H 06/30/18 11:20 Lymph % (Auto) 9.6 % (22.0-35.0) L 06/30/18 11:20 [place] % (Auto) 2.9 % (1.0-6.0) 06/30/18 11:20 Eos % (Auto) 0.2 % (1.5-5.0) L 06/30/18 11:20 Baso % (Auto) 0.1 % (0.0-3.0) 06/30/18 11:20 Gran # 8.40 (1.4-6.5) H 06/30/18 11:20 Lymph # (Auto) 0.9 (1.2-3.4) L 06/30/18 11:20 [place] # (Auto) 0.3 (0.1-0.6) 06/30/18 11:20 Eos # (Auto) 0.0 (0.0-0.7) 06/30/18 11:20 Baso # (Auto) 0.01 K/mm3 (0.0-2.0) 06/30/18 11:20 PT 11.9 SECONDS (9.4-12.5) 06/30/18 11:20 INR 1.03 06/30/18 11:20 APTT 21.0 Seconds (25.1-36.5) L 06/30/18 11:20 Sodium 138 mmol/L (132-148) 06/30/18 11:20 Potassium 4.0 mmol/L (3.6-5.0) 06/30/18 11:20 Chloride 101 mmol/L (98-107) 06/30/18 11:20 Carbon Dioxide 30 mmol/L (21-33) 06/30/18 11:20 Anion Gap 10 (10-20) 06/30/18 11:20 BUN 26 mg/dL (7-21) H 06/30/18 11:20 Creatinine 0.8 mg/dl (0.7-1.2) 06/30/18 11:20 Est GFR ( Amer) > 60 06/30/18 11:20 Est GFR (Non-Af Amer) > 60 06/30/18 11:20 Random Glucose 89 mg/dL (70-110) 06/30/18 11:20 Calcium 9.3 mg/dL (8.4-10.5) 06/30/18 11:20 Total Bilirubin 0.8 mg/dL (0.2-1.3) 06/30/18 11:20 AST 27 U/L (14-36) 06/30/18 11:20 ALT 31 U/L (7-56) 06/30/18 11:20 Alkaline Phosphatase 102 U/L (38-126) 06/30/18 11:20 Total Protein 6.9 g/dL (5.8-8.3) 06/30/18 11:20 Albumin 3.7 g/dL (3.0-4.8) 06/30/18 11:20 Globulin 3.2 gm/dL 06/30/18 11:20 Albumin/Globulin Ratio 1.2 (1.1-1.8) 06/30/18 11:20 Urine Color Yellow (YELLOW) 06/30/18 11:42 Urine Appearance Clear (CLEAR) 06/30/18 11:42 Urine pH 6.0 (4.7-8.0) 06/30/18 11:42 Ur Specific [place] 1.020 (1.005-1.035) 06/30/18 11:42 Urine Protein Negative mg/dL (<30 mg/dL) 06/30/18 11:42 Urine Glucose (UA) Negative mg/dL (NEGATIVE) 06/30/18 11:42 Urine Ketones Negative mg/dL (NEGATIVE) 06/30/18 11:42 Urine Blood Small (NEGATIVE) H 06/30/18 11:42 Urine Nitrate Negative (NEGATIVE) 06/30/18 11:42 Urine Bilirubin Negative (NEGATIVE) 06/30/18 11:42 Urine Urobilinogen 0.2 E.U./dL (<1 E.U./dL) 06/30/18 11:42 Ur Leukocyte Esterase Negative [place]/uL (NEGATIVE) 06/30/18 11:42 Urine RBC 10 - 15 /hpf (0-2) 06/30/18 11:42 Urine WBC 0 - 2 /hpf (0-6) 06/30/18 11:42 Ur Epithelial Cells 4 - 5 /hpf (0-5) 06/30/18 11:42 Urine Bacteria Mod (NEG) 06/30/18 11:42 - Hospital Course Hospital Course: This is a 73 yo F with PMH of hypothyroidism, lupus, lung fibrosis, breast cancer (remission), lung cancer, and possible DOROTA/GERD presenting with complaint of right-sided intractable back pain radiating into her right leg. Imaging obtained after arrival is notable for chronic compression fracture of L3, and severe degenerative disc disease from L2 - L5. While here, patient was also seen by Pulm and Neuro. As per Neuro, the pain was chronic lumbosacral neuritis 2/2 multi-level degenerative disc disease, for which they recommended a 1x Dexamethasone injection (pt received early in admission), lumbar MRI, and PT outpatient. As per Pulm, the high steroids were likely for the lupus/lung fibrosis, and were decreased from 40mg PO daily to 20mg PO daily prednisone. Patient was able to tolerate the pain and ambulate on a PO pain regimen, so she was cleared for discharge. She was instructed to resume all home medications, to take Vitamin D and Calcium supplementation (prescriptions provided), and to follow up with her PMD (Dr. Coppola) within 1 week. She was advised that she would likely need an outpatient osteoperosis workup given her spinal compression fracture, and would likely need to be started on Bisphosphonates at a later date. She was also instructed to establish with outpatient PT for strengthening exercises for her back muscles. Patient expressed understanding and agreement with these instructions. Questions were answered to her satisfaction, and then she was discharged. Reviewed and discussed with attending, Dr. Armando. Discharge Exam - Additional Findings Additional findings: - Constitutional Appears: Non-toxic, No Acute Distress - Head Exam Head Exam: ATRAUMATIC, NORMAL INSPECTION, NORMOCEPHALIC - Eye Exam Eye Exam: EOMI, Normal appearance. absent: Conjunctival injection, Scleral icterus Pupil Exam: absent: Irregular, Unequal - ENT Exam ENT Exam: Mucous Membranes Moist - Neck Exam Neck Exam: Full ROM, Normal Inspection - Respiratory Exam Respiratory Exam: Clear to Ausculation Bilateral, NORMAL BREATHING PATTERN. absent: Accessory Muscle Use, Chest Wall Tenderness, Decreased Breath Sounds, Rales, Rhonchi, Wheezes - Cardiovascular Exam Cardiovascular Exam: REGULAR RHYTHM, RRR, +S2. absent: Bradycardia, Tachycardia, JVD - GI/Abdominal Exam GI & Abdominal Exam: Soft. absent: Distended, Firm, Rigid, Tenderness, Diminished Bowel Sounds, Hyperactive Bowel Sounds, Hypoactive Bowel Sounds - Extremities Exam Extremities Exam: Full ROM, Normal Inspection. absent: Calf Tenderness, Pedal Edema, Tenderness - Back Exam Back Exam: absent: CVA tenderness (L), CVA tenderness (R) Additional comments: tenderness to palpation at lower lumbar region, static pain worsened with palpation, no tenderness with palpation or compression at bilateral CVA or hip regions, lumbar palpation does not specifically trigger shooting pain down right or left legs - Neurological Exam awake and alert, moving all extremities spontaneously and on commands, motor grossly intact and equal bilaterally, no appreciable focal right-sided weakness - Psychiatric Exam Psychiatric exam: Normal Affect, Normal Mood - Skin Skin Exam: Dry, Intact, Normal Color, Warm Discharge Plan - Discharge Medications Prescriptions: RX: Calcium Carbonate [Caltrate] 600 mg PO DAILY #60 tab RX: Ergocalciferol [Drisdol 50,000 Intl Units Cap] 1 cap PO Q7D #8 cap - Follow Up Plan Condition: FAIR Disposition: HOME/ ROUTINE Instructions: Low Back Pain (DC), Vertebral Compression Fracture (DC) Additional Instructions: You were seen for your back pain. Imaging obtained was notable for vertebral disc disease and also a compression fracture. You will need to be worked up for Osteoperosis as an outpatient, with your primary medical doctor. Please resume all home medications as prescribed. You have been given prescriptions for Vitamin D and Calcium supplementation, please fill and take as prescribed. Please follow up with your PMD (Dr. Coppola) within 1 week of discharge. Please present to the nearest emergency department if you experience worsening or newly concerning symptoms. Referrals: Mike Coppola MD [Primary Care Provider] - <Blaine Armando - Last Filed: 07/04/18 21:42> Provider - Provider Date of Admission: 07/02/18 17:01 Attending physician: Blaine Armando MD Primary care physician: Mike Coppola MD Hospital Course - Lab Results Lab Results: Micro Results 06/30/18 11:42 Urine Urine Culture - Final No Growth (<1,000 CFU/ML) Most Recent Lab Values WBC 9.6 10^3/uL (4.5-11.0) 06/30/18 11:20 RBC 4.68 10^6/uL (3.5-6.1) 06/30/18 11:20 Hgb 13.3 g/dL (12.0-16.0) 06/30/18 11:20 Hct 40.8 % (36.0-48.0) 06/30/18 11:20 MCV 87.2 fl (80.0-105.0) 06/30/18 11:20 MCH 28.4 pg (25.0-35.0) 06/30/18 11:20 MCHC 32.6 g/dl (31.0-37.0) 06/30/18 11:20 RDW 17.0 % (11.5-14.5) H 06/30/18 11:20 Plt Count 256 10^3/uL (120.0-450.0) 06/30/18 11:20 MPV 9.1 fl (7.0-11.0) 06/30/18 11:20 Gran % 87.2 % (50.0-68.0) H 06/30/18 11:20 Lymph % (Auto) 9.6 % (22.0-35.0) L 06/30/18 11:20 [place] % (Auto) 2.9 % (1.0-6.0) 06/30/18 11:20 Eos % (Auto) 0.2 % (1.5-5.0) L 06/30/18 11:20 Baso % (Auto) 0.1 % (0.0-3.0) 06/30/18 11:20 Gran # 8.40 (1.4-6.5) H 06/30/18 11:20 Lymph # (Auto) 0.9 (1.2-3.4) L 06/30/18 11:20 [place] # (Auto) 0.3 (0.1-0.6) 06/30/18 11:20 Eos # (Auto) 0.0 (0.0-0.7) 06/30/18 11:20 Baso # (Auto) 0.01 K/mm3 (0.0-2.0) 06/30/18 11:20 PT 11.9 SECONDS (9.4-12.5) 06/30/18 11:20 INR 1.03 06/30/18 11:20 APTT 21.0 Seconds (25.1-36.5) L 06/30/18 11:20 Sodium 138 mmol/L (132-148) 06/30/18 11:20 Potassium 4.0 mmol/L (3.6-5.0) 06/30/18 11:20 Chloride 101 mmol/L (98-107) 06/30/18 11:20 Carbon Dioxide 30 mmol/L (21-33) 06/30/18 11:20 Anion Gap 10 (10-20) 06/30/18 11:20 BUN 26 mg/dL (7-21) H 06/30/18 11:20 Creatinine 0.8 mg/dl (0.7-1.2) 06/30/18 11:20 Est GFR ( Amer) > 60 06/30/18 11:20 Est GFR (Non-Af Amer) > 60 06/30/18 11:20 Random Glucose 89 mg/dL (70-110) 06/30/18 11:20 Calcium 9.3 mg/dL (8.4-10.5) 06/30/18 11:20 Total Bilirubin 0.8 mg/dL (0.2-1.3) 06/30/18 11:20 AST 27 U/L (14-36) 06/30/18 11:20 ALT 31 U/L (7-56) 06/30/18 11:20 Alkaline Phosphatase 102 U/L (38-126) 06/30/18 11:20 Total Protein 6.9 g/dL (5.8-8.3) 06/30/18 11:20 Albumin 3.7 g/dL (3.0-4.8) 06/30/18 11:20 Globulin 3.2 gm/dL 06/30/18 11:20 Albumin/Globulin Ratio 1.2 (1.1-1.8) 06/30/18 11:20 Urine Color Yellow (YELLOW) 06/30/18 11:42 Urine Appearance Clear (CLEAR) 06/30/18 11:42 Urine pH 6.0 (4.7-8.0) 06/30/18 11:42 Ur Specific [place] 1.020 (1.005-1.035) 06/30/18 11:42 Urine Protein Negative mg/dL (<30 mg/dL) 06/30/18 11:42 Urine Glucose (UA) Negative mg/dL (NEGATIVE) 06/30/18 11:42 Urine Ketones Negative mg/dL (NEGATIVE) 06/30/18 11:42 Urine Blood Small (NEGATIVE) H 06/30/18 11:42 Urine Nitrate Negative (NEGATIVE) 06/30/18 11:42 Urine Bilirubin Negative (NEGATIVE) 06/30/18 11:42 Urine Urobilinogen 0.2 E.U./dL (<1 E.U./dL) 06/30/18 11:42 Ur Leukocyte Esterase Negative [place]/uL (NEGATIVE) 06/30/18 11:42 Urine RBC 10 - 15 /hpf (0-2) 06/30/18 11:42 Urine WBC 0 - 2 /hpf (0-6) 06/30/18 11:42 Ur Epithelial Cells 4 - 5 /hpf (0-5) 06/30/18 11:42 Urine Bacteria Mod (NEG) 06/30/18 11:42 - Hospital Course Hospital Course: Pt seen and examined. I have reviewed the note of the medical tech and agree with it. I have discussed the assessment and plan with the resident. I have reviewed the patient's labs and medications. Pt with L3 Vertebral fx. She will be discharged home today. She has osteoporosis due to her steroids. She will need PT. I did speak with the to give him an updated. This is a late entry. I saw the pt yesterday. She was given steroids with some relief of her pain. MRI was reviewed.
--- NOTE | 2018-07-03 13:33 | PN ---
DATE: 07/03/2018 SUBJECTIVE: She is lying in the bed, head at 45 degrees. Night was unremarkable. Overall, feels better. Breathing is better. No nausea. No vomiting. No diarrhea. Mild hip discomfort. No leg pain or leg swelling. PHYSICAL EXAMINATION GENERAL: No acute distress. VITAL SIGNS: Temperature 98, heart rate 56, respiratory rate 18, blood pressure 139/71, pulse ox 98% on 2 L nasal cannula. HEENT: Moist mucous membranes. Crowded airway. Mallampati score is 4. NECK: Supple. No JVD. LUNGS: Decreased breath sounds at the bases, scattered rhonchi. HEART: S1 and S2. ABDOMEN: Soft. Nontender. No organomegaly. EXTREMITIES: No edema. NEUROLOGIC: Awake, alert. Follows simple command. MEDICATIONS: She is on Arimidex 1 mg daily, calcium carbonate 600 mg daily, Colace 100 mg daily, vitamin D 50,000 units every 7 days, azathioprine 150 mg daily, lidocaine patch to affected area, Lovenox 40 mg subcu daily, Lyrica 75 mg twice a day, morphine 2 mg every 4 hours p.r.n., Norvasc 5 mg daily, Percocet 5/325 one tablet every 4 hours p.r.n., Plaquenil 200 mg daily, prednisone 20 mg daily, Protonix 40 mg daily, Synthroid 125 mcg a.c.b. LABORATORY DATA: Reviewed. No new lab is available. CT scan report, which was done at [facility] sitting at bedside shows new bilateral small pulmonary nodules, also shows sign of bronchiectasis old, pulmonary fibrosis. IMPRESSION AND PLAN: Chronic obstructive lung disease with bronchiectasis, sign of pulmonary fibrosis, history of lung cancer, requiring wedge resection and also reoccurrence of nodule requiring radiation therapy in the past, has a history of breast cancer in the past requiring right mastectomy, hypothyroid, lupus, . Patient being discharged home. According to patient, she will have followup at [facility] with Pulmonary and surgeon. Clinically, I will suggest to get repeat CAT scan of the neck, chest and abdomen to assure there is no other lesion sitting anywhere else. If still persistent lung nodule, we will suggest getting PET scan to see if there is any local recurrent of breast cancer and/or local recurrent of lung cancer to suggest what chemotherapy to try. She should taper off steroids as soon as possible, need outpatient attended sleep study, should have also pulmonary function test as outpatient. Connie Medrano MD
== END 2018-07-03 13:18 | disposition home or self-care (01) | DRG 552 ==
LOC: ED 09:37 → ERH 12:45 → 3RSO 15:24 → OBSVTOIN 07-02 17:01
PROVIDERS: ADMIT Internal Medicine Nephrology; ATTEND Internal Medicine Nephrology
DX: M51.17 Intervertebral disc disorders with radiculopathy, lumbosacral region (principal); M48.56XA Collapsed vertebra, not elsewhere classified, lumbar region, initial encounter for fracture; M32.9 Systemic lupus erythematosus, unspecified; J84.10 Pulmonary fibrosis, unspecified; E03.9 Hypothyroidism, unspecified; R29.890 Loss of height; J44.9 Chronic obstructive pulmonary disease, unspecified; M46.90 Unspecified inflammatory spondylopathy, site unspecified; Z85.3 Personal history of malignant neoplasm of breast; Z85.118 Personal history of other malignant neoplasm of bronchus and lung; Z90.11 Acquired absence of right breast and nipple; Z92.3 Personal history of irradiation

== ENCOUNTER 2018-10-27 10:07 | Inpatient (IN) | payer MEDICARE ==
[2018-10-27 10:09] VITALS: BMI 27.9
[2018-10-27] MEDS ORDERED: Oxycodone/Acetaminophen 5/325 mg Tab PO STA (11:12)
[2018-10-27 11:53] LABS: EOS # 0.1 (0.0-0.7); EOS % 1.3 % (1.5-5.0); HEMOGLOBIN 11.8 g/dL (12.0-16.0); LYMPH # 0.6 (1.2-3.4); LYMPH % 9.7 % (22.0-35.0); MEAN CELL VOLUME 91.5 fl (80.0-105.0); MEAN CORPUSCULAR HEMOGLOBIN 29.4 pg (25.0-35.0); MEAN CORPUSCULAR HGB CONC 32.2 g/dl (31.0-37.0); MONO # 0.4 (0.1-0.6); RBC 4.01 10^6/uL (3.5-6.1); RED CELL DISTRIBUTION WIDTH 18.1 % (11.5-14.5)
[2018-10-27 12:02] LABS: BLOOD UREA NITROGEN 28 mg/dL (7-21); CALCIUM 8.9 mg/dL (8.4-10.5); GFR NON-AFRICAN AMERICAN > 60
[2018-10-27 12:03] LABS: ALB/GLOB RATIO 1.2 (1.1-1.8); ALBUMIN 3.4 g/dL (3.0-4.8); ALT/SGPT 32 U/L (7-56); AST/SGOT 36 U/L (14-36)
--- NOTE | 2018-10-27 12:34 | ED PDOC ---
Arrival/HPI - General Chief Complaint: Back Pain Time Seen by Provider: 10/27/18 10:30 Historian: Patient - History of Present Illness Narrative History of Present Illness (Text): 10/27/18 12:30 73-year-old female with a history of breast cancer, lupus, hypothyroidism, lung fibrosis and lung cancer, history of vertebral fracture presents today with worsening low back pain. Patient states she woke up today and was unable to mo ve from the bed/get out of the bed due to severe pain in the low back. Patient denies any recent trauma or injury. Patient denies numbness weakness or tingling in the lower extremities. She denies abdominal pain. She denies dysuria or urinary frequency. Patient denies headaches dizziness or weakness. No chest pain or shortness of breath. Patient states she is on 2 L nasal cannula at home. Her states that for an hour at home they were trying to get her out of bed. Patient states she went to [place] yesterday and was wearing a back brace throughout the day. No medications have been taken for pain at home. Past Medical History - Provider Review Nursing Documentation Reviewed: Yes - Travel History Have you recently traveled outside [place] w/in the past 3 mons?: No - Infectious Disease Hx of Infectious Diseases: None - Cardiac Hx Cardiac Disorders: No Hx Angina: No Hx Cardiac Arrhythmia: No Hx Circulatory Problems: No Hx Congestive Heart Failure: No Hx Heart Murmur: No Hx Heart Transplant: No Hx Hypertension: Yes Hx Internal Defibrillator: No Hx Mitral Valve Prolapse: No Hx Pacemaker: No Hx Peripheral Edema: Yes (gets swelling on ankles when ambulating) Hx Peripheral Vascular Disease: No - Pulmonary Hx Lung Cancer: Yes Other/Comment: Pulmonary fibrosis - on o2 @ 2LPM - Neurological Hx Neurological Disorder: No Hx Alzheimer's Disease: No HX Cerebrovascular Accident: No Hx Dementia: No Hx Dizziness: No Hx Meningitis: No Hx Migraine: No Hx Parkinson's Disease: No Hx Seizures: No Hx Transient Ischemic Attacks (TIA): No - Endocrine/Metabolic Hx Hypothyroidism: Yes - Hematological/Oncological Hx Blood Disorders: No Hx AIDS: No Hx Anemia: No Hx Cancer: Yes (lung/breast) Hx Chemotherapy: No Hx Cirrhosis: No Hx Hepatitis A: No Hx Hepatitis B: No Hx Hepatitis C: No Hx Metastasis: No Hx Shingles: No Hx Unexplained Bleeding: No - Musculoskeletal/Rheumatological Hx Arthritis: Yes Hx Back Pain: Yes Hx Falls: Yes Hx Osteoporosis: Yes - Psychiatric Hx Substance Use: No - Surgical History Hx Mastectomy: Yes (R breast CA/mastectomy) - Anesthesia Hx Anesthesia: Yes Hx Anesthesia Reactions: No Hx Malignant Hyperthermia: No Family/Social History - Physician Review Nursing Documentation Reviewed: Yes Family/Social History: Unknown Family HX Smoking Status: Never Smoked Hx Alcohol Use: No Hx Substance Use: No Allergies/Home Meds Allergies/Adverse Reactions: Allergies morphine Adverse Reaction (Mild, Verified 10/27/18 10:09) heart palpitations Home Medications: Home Meds Medication Instructions Recorded Confirmed Anastrozole [Arimidex 1 mg Tab] 1 tab PO DAILY 06/30/18 06/30/18 Azathioprine [Azasan] 50 mg PO TID 06/30/18 06/30/18 Calcium Phosphate Trib/Vit D3 1 tab PO DAILY 06/30/18 06/30/18 [Citracal + D3 Gummies] Hydroxychloroquine Sulfate 200 mg PO DAILY 06/30/18 06/30/18 [Plaquenil] Levothyroxine [Synthroid] 125 mcg PO DAILY 06/30/18 06/30/18 amLODIPine [Norvasc] 5 mg PO DAILY 06/30/18 06/30/18 predniSONE [predniSONE Tab] 10 mg PO TID 06/30/18 06/30/18 Review of Systems - Review of Systems Constitutional: absent: Fatigue, Fevers Respiratory: absent: SOB, Cough Cardiovascular: absent: Chest Pain, Palpitations Gastrointestinal: Diarrhea (from chemotherapy). absent: Abdominal Pain, Vomiting Genitourinary Female: absent: Dysuria, Frequency, Hematuria Musculoskeletal: Back Pain. absent: Arthralgias, Neck Pain Skin: Rash (from chemotherapy). absent: Pruritis Neurological: absent: Headache, Dizziness Psychiatric: absent: Anxiety, Depression Physical Exam Vital Signs Reviewed: Yes Vital Signs Temp Pulse Resp BP Pulse Ox 10/27/18 10:23 98.1 F 78 18 121/72 90 L Temperature: Afebrile Blood Pressure: Normal Pulse: Regular Respiratory Rate: Normal Appearance: Positive for: Well-Appearing, Non-Toxic, Comfortable Pain Distress: None Mental Status: Positive for: Alert and Oriented X 3 - Systems Exam Head: Present: Atraumatic Mouth: Present: Moist Mucous Membranes Neck: Present: Normal Range of Motion Respiratory/Chest: Present: Clear to Auscultation, Good Air Exchange. No: Respiratory Distress, Accessory Muscle Use Cardiovascular: Present: Regular Rate and Rhythm, Normal S1, S2. No: Murmurs Abdomen: No: Tenderness, Distention, Peritoneal Signs, Rebound, Guarding Back: Present: Other (unable to move from laying to sitting, + ttp over lower lumbar) Upper Extremity: Present: Normal ROM Lower Extremity: Present: Normal ROM, Neurovascularly Intact. No: Tenderness, Swelling Neurological: Present: GCS=15, Speech Normal, Motor Func Grossly Intact, Normal Sensory Function Skin: Present: Warm, Dry, Normal Color. No: Rashes Psychiatric: Present: Alert, Oriented x 3 Medical Decision Making ED Course and Treatment: 10/27/18 12:33 73yr old female with back pain and inability to ambulate. hx of cancer and vertebral fracture. pt states morphine causes palpitations, pt states she wants to try percocet first for pain. cbc wnl cmp; wnl ua; pending cxr; ? left pleural effusion ct thoracic;FINDINGS: VERTEBRAE: There is normal alignment of the thoracic vertebral bodies. There is normal thoracic kyphosis. There is severe diffuse bone demineralization. There are multifocal ostial blastic lesions scattered throughout the thoracic spine with involvement of the posterior elements at T6 on the left and T8 on the right. No pathologic fracture. DISCS/SPINAL CANAL/NEURAL FORAMINA: Within the limits of the CT technique, no large disc herniation seen. No central canal or neural foraminal stenosis.. PARASPINAL SOFT TISSUES: Unremarkable. OTHER FINDINGS: There is confluent airspace disease in both lower lobes, worse on the left jacqui rning for pneumonia. There is a subacute healing fracture in the left posterior 9th rib. IMPRESSION: 1. Multifocal osteoblastic subacute healing metastasis. In the thoracic spine with involvement of the posterior elements at T6 on the left and T8 on the right. There is also osteoblastic metastasis in the left posterior 6th rib. 2. Subacute healing fracture in the left posterior 9th rib. ct lumbar; FINDINGS: VERTEBRAE: There are age indeterminate superior endplate compression fractures in the L2, L3, L4 and L5 vertebral bodies with approximately 50% loss of central vertebral height at L4 and mild posterior superior retropulsion of fracture fragment. There are osteoblastic lesions in the L1 vertebral body on the right and L2 vertebral body on the left. There is severe diffuse bone demineralization DISCS/SPINAL CANAL/NEURAL FORAMINA: L1-2: Unremarkable. L2-3: Posterior disc bulge without central spinal canal stenosis. Mild bilateral facet arthropathy contribute to moderate neural foraminal narrowing. L3-4: Diffuse posterior disc bulge in conjunction with moderate ligamentum flavum infolding result in mild spinal canal stenosis. Mild bilateral facet arthropathy contribute to severe right and moderate left neural foraminal narrowing. L4-5: Diffuse posterior disc bulge in conjunction with mild ligamentum flavum infolding result in mild spinal canal stenosis. Superimposed right far lateral disc protrusion abuts the exiting right L4 nerve root. Moderate bilateral facet arthropathy contribute to moderate right and mild left neural foraminal narrowing. L5-S1: Posterior disc bulge without central spinal canal stenosis. Severe bilateral facet arthropathy contribute to severe neural foraminal narrowing. PARASPINAL SOFT TISSUES: The paraspinous soft tissues are normal. OTHER FINDINGS: Sigmoid diverticulosis without CT evidence for acute diverticulitis. IMPRESSION: 1. Severe diffuse bone demineralization. 2. Multifocal age indeterminate compression fractures in the L2, L3, L4 and L5 vertebral bodies worse at L4 with 50 % loss of vertebral height and mild posterior superior retropulsion of fracture fragment. If clinically indicated, an MRI may be performed to determine the acuity of the fractures. 3. Osteoblastic metastasis in the L1 vertebral body on the right and L2 vertebral body on the left. 4. Multilevel degenerative disc disease, worse at L4-5 with a diffuse posterior disc bulge, mild spinal canal stenosis, moderate right and mild left neural foraminal narrowing. Superimposed right far lateral disc protrusion abuts the exiting right L4 nerve root. pt reassessment; pt feeling slightly better after perocet; still unable to sit up or ambulate. all results discussed with patient in depth; pt given rocephin and zithromax for possible PNA on thoracic CT. case discussed with dr. freeman; accepts admission to med/surg impression; back pain, intractable, compression fracture, pneumonia, pleural effusion admit - Lab Interpretations Lab Results: Total Bilirubin 0.9 mg/dL (0.2-1.3) 10/27/18 11:40 AST 36 U/L (14-36) D 10/27/18 11:40 ALT 32 U/L (7-56) 10/27/18 11:40 Alkaline Phosphatase 107 U/L (38-126) 10/27/18 11:40 Total Protein 6.2 g/dL (5.8-8.3) 10/27/18 11:40 Albumin 3.4 g/dL (3.0-4.8) 10/27/18 11:40 Globulin 2.8 gm/dL 10/27/18 11:40 Albumin/Globulin Ratio 1.2 (1.1-1.8) 10/27/18 11:40 - RAD Interpretation Radiology Orders: 10/27/18 11:12 CHEST PORTABLE [RAD] Stat 10/27/18 11:15 LUMBAR SPINE W/O CONTRAST [CT] Stat THORACIC SPINE W/O CONT [CT] Stat - Medication Orders Current Medication Orders: Discontinued Medications Ondansetron HCl (Zofran Inj) 4 mg IVP STAT STA Stop: 10/27/18 11:13 Last Admin: 10/27/18 11:42 Dose: 4 mg IVP Administration Document 10/27/18 11:42 GMI (Rec: 10/27/18 11:45 GMI [id number]) Charges for Administration # of IVP Administrations 1 Oxycodone/Acetaminophen (Percocet 5/325 Mg Tab) 1 tab PO STAT STA Stop: 10/27/18 11:13 Last Admin: 10/27/18 11:45 Dose: 1 tab MAR Pain Assessment Document 10/27/18 11:45 GMI (Rec: 10/27/18 11:45 GMI [facility] [id number]) Pain Reassessment Is this a pain reassessment? Yes Sleep Is patient sleeping during reassessment? No Presence of Pain Presence of Pain Yes Disposition/Present on Arrival - Present on Arrival Any Indicators Present on Arrival: No History of DVT/PE: No History of Uncontrolled Diabetes: No Urinary Catheter: No History of Decub. Ulcer: No History Surgical Site Infection Following: None - Disposition Have Diagnosis and Disposition been Completed?: Yes Diagnosis: Intractable back pain, Pneumonia, Compression fx, lumbar spine, Pleural effusion Disposition: HOSPITALIZED Disposition Time: 13:00 Patient Plan: Admission Patient Problems: Current Active Problems Problem Status Onset Compression fx, lumbar spine Acute Intractable back pain Acute Pleural effusion Acute Pneumonia Acute Condition: FAIR
--- NOTE | 2018-10-27 12:50 | CT ---
Date of service: 10/27/2018 PROCEDURE: CT Thoracic Spine without contrast HISTORY: back pain COMPARISON: None TECHNIQUE: Axial computed tomography images were obtained of the thoracic spine without intravenous contrast. Coronal and sagittal reformatted images were created and reviewed. Radiation dose: Total exam DLP = 705.83 mGy-cm. This CT exam was performed using one or more of the following dose reduction techniques: Automated exposure control, adjustment of the mA and/or kV according to patient size, and/or use of iterative reconstruction technique. FINDINGS: VERTEBRAE: There is normal alignment of the thoracic vertebral bodies. There is normal thoracic kyphosis. There is severe diffuse bone demineralization. There are multifocal ostial blastic lesions scattered throughout the thoracic spine with involvement of the posterior elements at T6 on the left and T8 on the right. No pathologic fracture. DISCS/SPINAL CANAL/NEURAL FORAMINA: Within the limits of the CT technique, no large disc herniation seen. No central canal or neural foraminal stenosis.. PARASPINAL SOFT TISSUES: Unremarkable. OTHER FINDINGS: There is confluent airspace disease in both lower lobes, worse on the left concerning for pneumonia. There is a subacute healing fracture in the left posterior 9th rib. IMPRESSION: 1. Multifocal osteoblastic subacute healing metastasis. In the thoracic spine with involvement of the posterior elements at T6 on the left and T8 on the right. There is also osteoblastic metastasis in the left posterior 6th rib. 2. Subacute healing fracture in the left posterior 9th rib.
[2018-10-27] MEDS ORDERED: Azithromycin 500MG/NS 250ml 500 MG/250 ML BAG IVPB STA (12:54)
[2018-10-27] MEDS ORDERED: cefTRIAXone 1 gm 1 GM/100 ML BAG IVPB STA (12:54)
--- NOTE | 2018-10-27 13:03 | CT ---
Date of service: 10/27/2018 PROCEDURE: CT Lumbar Spine without contrast HISTORY: low back pain COMPARISON: CT lumbar spine without contrast from 06/30/2018 and MRI lumbar spine without contrast from 07/01/2018 TECHNIQUE: Axial computed tomography images were obtained of the lumbar spine without the use of intravenous contrast. Coronal and sagittal reformatted images were created and reviewed. Radiation dose: Total exam DLP = 959.49 mGy-cm. This CT exam was performed using one or more of the following dose reduction techniques: Automated exposure control, adjustment of the mA and/or kV according to patient size, and/or use of iterative reconstruction technique. FINDINGS: VERTEBRAE: There are age indeterminate superior endplate compression fractures in the L2, L3, L4 and L5 vertebral bodies with approximately 50% loss of central vertebral height at L4 and mild posterior superior retropulsion of fracture fragment. There are osteoblastic lesions in the L1 vertebral body on the right and L2 vertebral body on the left. There is severe diffuse bone demineralization DISCS/SPINAL CANAL/NEURAL FORAMINA: L1-2: Unremarkable. L2-3: Posterior disc bulge without central spinal canal stenosis. Mild bilateral facet arthropathy contribute to moderate neural foraminal narrowing. L3-4: Diffuse posterior disc bulge in conjunction with moderate ligamentum flavum infolding result in mild spinal canal stenosis. Mild bilateral facet arthropathy contribute to severe right and moderate left neural foraminal narrowing. L4-5: Diffuse posterior disc bulge in conjunction with mild ligamentum flavum infolding result in mild spinal canal stenosis. Superimposed right far lateral disc protrusion abuts the exiting right L4 nerve root. Moderate bilateral facet arthropathy contribute to moderate right and mild left neural foraminal narrowing. L5-S1: Posterior disc bulge without central spinal canal stenosis. Severe bilateral facet arthropathy contribute to severe neural foraminal narrowing. PARASPINAL SOFT TISSUES: The paraspinous soft tissues are normal. OTHER FINDINGS: Sigmoid diverticulosis without CT evidence for acute diverticulitis. IMPRESSION: 1. Severe diffuse bone demineralization. 2. Multifocal age indeterminate compression fractures in the L2, L3, L4 and L5 vertebral bodies worse at L4 with 50 % loss of vertebral height and mild posterior superior retropulsion of fracture fragment. If clinically indicated, an MRI may be performed to determine the acuity of the fractures. 3. Osteoblastic metastasis in the L1 vertebral body on the right and L2 vertebral body on the left. 4. Multilevel degenerative disc disease, worse at L4-5 with a diffuse posterior disc bulge, mild spinal canal stenosis, moderate right and mild left neural foraminal narrowing. Superimposed right far lateral disc protrusion abuts the exiting right L4 nerve root.
--- NOTE | 2018-10-27 13:19 | RAD ---
Date of service: 10/27/2018 HISTORY: back pain COMPARISON: No prior. FINDINGS: LUNGS: The lungs are well inflated. Patchy airspace disease in the right lower lobe and left lower lobe. PLEURA: Moderate left pleural effusion. No pneumothorax. CARDIOVASCULAR: The heart is normal in size. No aortic atherosclerotic calcifications present. OSSEOUS STRUCTURES: Grossly normal in appearance. VISUALIZED UPPER ABDOMEN: Normal. OTHER FINDINGS: Small foci of sclerosis in the left humeral head may represent bone island however sclerotic metastasis is also differential consideration. IMPRESSION: Limited portable examination. Moderate left pleural effusion. Patchy airspace disease in the lower lobes which may represent atelectasis or pneumonia. Follow-up is advised.
[2018-10-27] MEDS ORDERED: oxyCODONE 10 mg Immediate Release Tab PO PRN (18:39)
[2018-10-28 05:59] LABS: URINE BILIRUBIN NEGATIVE (NEGATIVE); URINE BLOOD NEGATIVE (NEGATIVE); URINE GLUCOSE (UA) NEGATIVE (NEGATIVE); URINE LEUKOCYTE ESTERASE NEGATIVE Leu/uL (NEGATIVE); URINE PROTEIN NEGATIVE mg/dL (<30 mg/dL); URINE UROBILINOGEN 0.2 E.U./dL (<1 E.U./dL)
[2018-10-28] MEDS: Pantoprazole 40 mg EC Tab PO SCH (06:03)
[2018-10-28] MEDS: Levothyroxine 125 MCG TAB PO SCH (06:03)
[2018-10-28 06:37] LABS: URINE APPEARANCE CLEAR (CLEAR); URINE COLOR YELLOW (YELLOW)
[2018-10-28] MEDS: [UNRECOGNIZED DRUG - OTHER] PO SCH (13:30)
[2018-10-28] MEDS ORDERED: Albuterol-Ipratrop 3 mg / 0.5 (3 ml) UD IH PRN (13:45)
--- NOTE | 2018-10-28 15:45 | CT ---
Date of service: 10/28/2018 PROCEDURE: CT Chest without contrast HISTORY: r/o pneumonia COMPARISON: Plain radiograph from 10/27/2018 TECHNIQUE: Contiguous axial images were obtained through the chest without intravenous contrast enhancement. Sagittal and coronal reconstructions were performed. Radiation dose: Total exam DLP = 403.57 mGy-cm. This CT exam was performed using one or more of the following dose reduction techniques: Automated exposure control, adjustment of the mA and/or kV according to patient size, and/or use of iterative reconstruction technique. FINDINGS: LUNGS: There is subsegmental atelectasis/scarring in the right middle and lower lobes. There is traction bronchiectasis and honeycombing in both lower lobes. There is more confluent airspace disease in the left lower lobe. MEDIASTINUM: The aorta is not dilated. There is mild cardiomegaly and trace pericardial effusion. There are aortic atherosclerotic calcifications present. PLEURA: Small left pleural effusion. No pneumothorax. BONES: No fracture. There is diffuse bone demineralization. There are multifocal sclerotic lesions in the T3, T4, T6 and superior T11 vertebral bodies. There are also sclerotic lesions in the left 6th pedicle, lamina, left posterior 6th rib, right pedicle and lamina at T1, lamina of T2 and subacute healing fracture in the left posterior T9 rib. UPPER ABDOMEN: Grossly unremarkable. OTHER FINDINGS: None. IMPRESSION: 1. Fibrotic changes in the right middle lobe, right lower lobe, left lower lobe with more confluent airspace disease in the left lower lobe which may represent superimposed pneumonia. Small left pleural effusion. 2. Multifocal sclerotic lesions in the thoracic vertebral bodies and posterior elements as described above. Subacute healing feature in the left posterior 9th rib. These are most compatible with osteoblastic metastasis.
[2018-10-28] MEDS: cefTRIAXone 1 gm 1 GM/100 ML BAG IVPB SCH (16:04)
[2018-10-28] MEDS: Azithromycin 500MG/NS 250ml 500 MG/250 ML BAG IVPB SCH (16:05)
[2018-10-28] MEDS: Lidocaine 5% Patch TD SCH (16:06)
--- NOTE | 2018-10-28 17:10 | CARD ---
APPROVED REPORT Date of service: 10/27/2018 EKG Measurement Heart [id number] <Conclusion> Sinus rhythm with premature atrial complexes Left axis deviation Voltage criteria for left ventricular hypertrophy Nonspecific ST and T wave abnormality Abnormal ECG
[2018-10-28] MEDS: Arformoterol 15 mcg/2 ml Inh Sol IH SCH (20:10)
[2018-10-28] MEDS: Budesonide 0.5 mg/2 ml Inhal Susp UD IH SCH (20:10)
--- NOTE | 2018-10-28 21:14 | HP ---
DATE OF EXAM: 10/28/2018 HISTORY OF PRESENT ILLNESS: The patient is a 73-year-old, seen and examined. She states she just came back from physical therapy, complaint of back pain, complaint of leg pain and knee pain. The patient states that 2 days ago, she went with her to [place] and her ride was bumpy, she attributed to that she started to have back pain that was 8/10, so she came to emergency room for further evaluation. Denies any weakness or numbness and does complain of difficulty walking because of excruciating pain in the back going to the left. PAST MEDICAL HISTORY: She has past medical history significant for; 1. Breast cancer. 2. History of lupus. 3. History of bilateral pulmonary fibrosis. 4. History of CA lung. 5. Hypothyroidism. PAST SURGICAL HISTORY: Significant for right mastectomy. FAMILY HISTORY: Not relevant. PERSONAL HISTORY: She is , lives with her and she has grownup children. ALLERGIES: SHE IS ALLERGIC TO MORPHINE AND GETS PALPITATION WITH THAT. HOME MEDICATIONS: She is on prednisone 10 mg three times a day, Norvasc 5 mg daily, levothyroxine 125 mcg daily and Plaquenil. She is on vitamin D. She take calcium carbonate. She is on azathioprine and she is on Arimidex. PHYSICAL EXAMINATION GENERAL: She is awake, alert, oriented and communicative. VITAL SIGNS: She is afebrile. Pulse 68, respiration 20 and blood pressure 155/70. LUNGS: Bilateral diffusely decreased breath sound. Few soft crackle. HEART: S1 and S2, audible. ABDOMEN: Soft and nontender. No rebound. No guarding. NEUROLOGIC: The patient is awake, alert and able to communicate. LABORATORY DATA: WBC 6.0, hemoglobin 11, hematocrit 36 and platelet of 220. Chemistry; sodium 137, potassium 3.9, chloride 106, CO2 of 28, BUN 28, creatinine 0.8 and blood sugar of 76. LFT's are within normal limits. Urinalysis is unremarkable. She has thoracic spine CT scan done that shows multifocal osteoblastic subacute healing mets in the thoracic spine with involvement of posterior element of T6. A lumbar spine CT scan shows severe diffuse bone demineralization, multifocal age indeterminate compression fracture of L2, L3, L4 and L5, worse at L4 and 50% loss of vertebral height, osteoblastic metastases in the L1 vertebrae on the right and L2 vertebrae on the left, multilevel degenerative disc disease. X-ray of chest is limited portable and moderate left pleural effusion, patchy airspace disease in the lower lobe, appears presenting atelectasis. ASSESSMENT 1. Intractable back pain secondary to multiple reasons including degenerative disc disease and metastases lumbar vertebrae. 2. Hypothyroidism. 3. History of cancer breast. 4. History of cancer lung. 5. History of lupus. 6. Hypertension. PLAN: Currently, the patient has been started on her usual medication, that is, azathioprine and Arimidex. She is on Lyrica. She has been started on amlodipine, analgesic and Plaquenil. She is on Protonix. She is on Synthroid already, add Lidoderm patch. We started her on laxative and continue on physical therapy. We will reevaluate in a.m. Shalonda Swenson MD
[2018-10-29] MEDS: Pantoprazole 40 mg EC Tab PO SCH (06:06)
[2018-10-29] MEDS: Levothyroxine 125 MCG TAB PO SCH (06:06)
--- NOTE | 2018-10-29 07:39 | CP.PCM.PN ---
<Hany Ibrahim - Last Filed: 10/29/18 09:45> Subjective - Date & Time of Evaluation Date of Evaluation: 10/29/18 Time of Evaluation: 07:40 - Subjective Subjective: Hany Ibrahim- Internal Medicine Resident- Progress Note on Behalf of Dr. Armando Subjective: Patient seen and examined at bedside. Admits to two bouts of diarrhea overnight after taking medication for lung cancer. Further denies fever, chills, abdominal pain, nausea, vomiting, and urinary symptoms. 12 point ROS negative except as indicated in the HPI Physical Examination: - Constitutional Appears: Non-toxic, No Acute Distress - Head Exam Head Exam: ATRAUMATIC, NORMOCEPHALIC - Eye Exam Eye Exam: EOMI - ENT Exam ENT Exam: Mucous Membranes Moist - Neck Exam Neck exam: Positive for: Full Rom - Respiratory Exam Respiratory Exam: no rhonchi, no wheezing - Cardiovascular Exam Cardiovascular Exam: RRR, +S1, +S2, absent: Systolic Murmur - GI/Abdominal Exam GI & Abdominal Exam: Normal Bowel Sounds, Soft. absent: Distended, Firm, Guarding, Organomegaly, Rebound, Tenderness - Extremities Exam Extremities exam: no cyanosis, no clubbing - Neurological Exam Neurological exam: Alert, Oriented x3 - Psychiatric Exam Psychiatric exam: Normal Affect, Normal Mood - Skin Skin Exam: Dry, Warm Assessment and Plan: Intractable back pain Pneumonia Hx of Breast cancer Hx of Lung cancer Hx of Lupus Hypertension Hypothyroidism Bilateral Lung fibrosis History of vertebral fracture 10/28/2018 CT Chest without contrast 1. Fibrotic changes in the right middle lobe, right lower lobe, left lower lobe with more confluent airspace disease in the left lower lobe which may represent superimposed pneumonia. Small left pleural effusion. 2. Multifocal sclerotic lesions in the thoracic vertebral bodies and posterior elements as described above. Subacute healing feature in the left posterior 9th rib. These are most compatible with osteoblastic metastasis. 10/27/2018 CT Lumbar Spine without contrast 1. Severe diffuse bone demineralization. 2. Multifocal age indeterminate compression fractures in the L2, L3, L4 and L5 vertebral bodies worse at L4 with 50 % loss of vertebral height and mild posterior superior retropulsion of fracture fragment. If clinically indicated, an MRI may be performed to determine the acuity of the fractures. 3. Osteoblastic metastasis in the L1 vertebral body on the right and L2 vertebral body on the left. 4. Multilevel degenerative disc disease, worse at L4-5 with a diffuse posterior disc bulge, mild spinal canal stenosis, moderate right and mild left neural foraminal narrowing. Superimposed right far lateral disc protrusion abuts the exiting right L4 nerve root. 10/27/2018 CT Thoracic Spine without contrast 1. Multifocal osteoblastic subacute healing metastasis. In the thoracic spine with involvement of the posterior elements at T6 on the left and T8 on the right. There is also osteoblastic metastasis in the left posterior 6th rib. 2. Subacute healing fracture in the left posterior 9th rib. Continue duonebs, brovana. Continue norvasc for htn. Continue azathioprine and hydroxychloroquine and prednisone for lupus. Continue azithromcyin and ceftriaxone for pna. Continue levothyroxine for hypothyroidism. Discontinue oxycodone IR prn pain. Started on morphine oral solution for severe pain, tramadol for moderate pain, and tylenol for mild pain. Continue protonix. Start imodium BID for diarrhea. C diff ordered and pending. Patient case reviewed with and plan approved by attending physician, Dr. Armando. Objective - Vital Signs/Intake and Output Vital Signs (last 24 hours): Temp Pulse Resp BP Pulse Ox 98.7 F 63 18 148/78 97 10/28/18 22:29 10/28/18 22:29 10/28/18 22:29 10/28/18 22:29 10/28/18 22:29 Intake and Output: 10/29/18 10/29/18 06:59 18:59 Intake Total 180 Balance 180 - Medications Medications: Current Medications Albuterol/Ipratropium (Duoneb 3 Mg/0.5 Mg (3 Ml) Ud) 3 ml IH Q2H PRN PRN Reason: Shortness of Breath Amlodipine Besylate (Norvasc) 5 mg PO DAILY [facility] Last Admin: 10/28/18 09:46 Dose: 5 mg Anastrozole (Arimidex 1 Mg Tab) 1 mg PO DAILY [facility] Last Admin: 10/28/18 09:47 Dose: 1 mg Arformoterol Tartrate (Brovana) 15 mcg IH [id number] [facility] Last Admin: 10/28/18 20:10 Dose: 15 mcg Azathioprine (Imuran) 150 mg PO HS [facility] Last Admin: 10/28/18 21:45 Dose: 150 mg Budesonide (Pulmicort Respules) 0.5 mg IH [id number] [facility] Last Admin: 10/28/18 20:10 Dose: 0.5 mg Home Med (Home Med) 1 unit PO 1300 [facility] Last Admin: 10/28/18 13:30 Dose: 1 unit Hydroxychloroquine Sulfate (Plaquenil) 200 mg PO DAILY [facility]; Protocol Last Admin: 10/28/18 09:46 Dose: 200 mg Ceftriaxone Sodium (Rocephin 1 Gram Ivpb) 1 gm in 100 mls @ 100 mls/hr IVPB DAILY [facility]; Protocol Last Admin: 10/28/18 16:04 Dose: 100 mls/hr Azithromycin (Zithromax 500mg In Ns) 500 mg in 250 mls @ 167 mls/hr IVPB DAILY [facility]; Protocol Last Admin: 10/28/18 16:05 Dose: 167 mls/hr Levothyroxine Sodium (Synthroid) 125 mcg PO 0600 [facility] Last Admin: 10/29/18 06:06 Dose: 125 mcg Lidocaine (Lidoderm) 1 ea TD DAILY [facility] Last Admin: 10/28/18 16:06 Dose: 1 ea Ondansetron HCl (Zofran Inj) 4 mg IVP Q6H PRN PRN Reason: Nausea/Vomiting Last Admin: 10/28/18 16:56 Dose: 4 mg Oxycodone HCl (Oxycodone Immediate Release Tab) 10 mg PO Q6H PRN PRN Reason: Pain, severe (8-10) Last Admin: 10/28/18 09:45 Dose: 10 mg Pantoprazole Sodium (Protonix Ec Tab) 40 mg PO 0700 [facility] Last Admin: 10/29/18 06:06 Dose: 40 mg Prednisone (Prednisone Tab) 20 mg PO BRK [facility] Last Admin: 10/28/18 09:46 Dose: 20 mg Pregabalin (Lyrica) 75 mg PO Q12 [facility] Last Admin: 10/28/18 21:45 Dose: 75 mg - Labs Labs: 10/27/18 11:40 10/27/18 11:40 <Blaine Armando - Last Filed: 10/29/18 15:43> Subjective - Subjective Subjective: Pt seen and examined by me. I have reviewed the note of the medical data analyst and I agree with it. I have discussed the assessment and plan with the resident. I have reviewed the medications and the last labs. Objective - Vital Signs/Intake and Output Vital Signs (last 24 hours): Temp Pulse Resp BP Pulse Ox 98 F 68 20 134/73 99 10/29/18 14:00 10/29/18 14:00 10/29/18 14:00 10/29/18 14:00 10/29/18 14:00 Intake and Output: 10/29/18 10/29/18 06:59 18:59 Intake Total 180 Balance 180 - Medications Medications: Current Medications Acetaminophen (Tylenol 325mg Tab) 650 mg PO Q4 PRN PRN Reason: Pain, Mild (1-3) Albuterol/Ipratropium (Duoneb 3 Mg/0.5 Mg (3 Ml) Ud) 3 ml IH Q2H PRN PRN Reason: Shortness of Breath Amlodipine Besylate (Norvasc) 5 mg PO DAILY [facility] Last Admin: 10/29/18 10:27 Dose: 5 mg Anastrozole (Arimidex 1 Mg Tab) 1 mg PO DAILY [facility] Last Admin: 10/29/18 11:43 Dose: 1 mg Arformoterol Tartrate (Brovana) 15 mcg IH [id number] [facility] Last Admin: 10/29/18 07:42 Dose: 15 mcg Azathioprine (Imuran) 150 mg PO HS [facility] Last Admin: 10/28/18 21:45 Dose: 150 mg Azithromycin (Zithromax) 500 mg PO DAILY [facility] Budesonide (Pulmicort Respules) 0.5 mg IH [id number] [facility] Last Admin: 10/29/18 07:42 Dose: 0.5 mg Home Med (Home Med) 1 unit PO 1300 [facility] Last Admin: 10/29/18 11:59 Dose: Not Given Hydroxychloroquine Sulfate (Plaquenil) 200 mg PO DAILY [facility]; Protocol Last Admin: 10/29/18 10:27 Dose: 200 mg Ceftriaxone Sodium (Rocephin 1 Gram Ivpb) 1 gm in 100 mls @ 100 mls/hr IVPB DAILY [facility]; Protocol Last Admin: 10/29/18 10:26 Dose: 100 mls/hr Levothyroxine Sodium (Synthroid) 125 mcg PO 0600 [facility] Last Admin: 10/29/18 06:06 Dose: 125 mcg Lidocaine (Lidoderm) 1 ea TD DAILY [facility] Last Admin: 10/29/18 10:26 Dose: 1 ea Loperamide HCl (Imodium) 2 mg PO BID [facility] Last Admin: 10/29/18 10:27 Dose: 2 mg Morphine Sulfate (Morphine Oral Soln) 10 mg PO Q6H PRN PRN Reason: Pain, severe (8-10) Last Admin: 10/29/18 11:44 Dose: 10 mg Ondansetron HCl (Zofran Inj) 4 mg IVP Q6H PRN PRN Reason: Nausea/Vomiting Last Admin: 10/28/18 16:56 Dose: 4 mg Pantoprazole Sodium (Protonix Ec Tab) 40 mg PO 0700 [facility] Last Admin: 10/29/18 06:06 Dose: 40 mg Prednisone (Prednisone Tab) 20 mg PO BRK [facility] Last Admin: 10/29/18 10:27 Dose: 20 mg Pregabalin (Lyrica) 75 mg PO Q12 [facility] Last Admin: 10/29/18 10:27 Dose: 75 mg Tramadol HCl (Ultram) 50 mg PO Q8H PRN PRN Reason: Pain, moderate (4-7) - Labs Labs: 10/27/18 11:40 10/27/18 11:40
[2018-10-29] MEDS: Budesonide 0.5 mg/2 ml Inhal Susp UD IH SCH ×2 (07:42→20:05)
[2018-10-29] MEDS: Arformoterol 15 mcg/2 ml Inh Sol IH SCH ×2 (07:42→20:05)
[2018-10-29] MEDS ORDERED: Morphine 15 mg Immediate Release Tab PO PRN (08:56)
[2018-10-29] MEDS ORDERED: Morphine 10 mg/5 ml Oral Soln PO PRN (09:03)
[2018-10-29] MEDS: Lidocaine 5% Patch TD SCH (10:26)
[2018-10-29] MEDS: cefTRIAXone 1 gm 1 GM/100 ML BAG IVPB SCH (10:26)
[2018-10-29] MEDS: Azithromycin 500MG/NS 250ml 500 MG/250 ML BAG IVPB SCH (10:28)
[2018-10-29] MEDS: [UNRECOGNIZED DRUG - OTHER] PO SCH (11:59)
--- NOTE | 2018-10-29 21:33 | PN ---
DATE: 10/29/2018 SUBJECTIVE: The patient was seen and examined. I do agree with the note of the biomedical service engineer. I was involved in the plan of care. The patient had a CT of the thoracic spine that showed multifocal osteoblastic subacute healing mets. A lumbar spine CT done shows multifocal age-indeterminate compression fractures in the L2, L3, L4 and L5 with severe diffuse demineralization. There are multilevel degenerative changes. There is an osteoblastic metastatic lesion in L1 vertebra. Chest CT done shows multiple sclerotic lesions in thoracic vertebral bodies. ASSESSMENT: 1. [id number] back pain secondary to metastatic lung cancer. 2. Lupus. 3. Hypertension. 4. Hypothyroidism. PLAN: The patient is comfortable but states that her pain is still not well controlled. She states that she will prefer to use morphine. She states she does not have a morphine allergy but had side effects in the past. She had no or rashes. She just did not feel well with the morphine. She is going to try the morphine again. The patient is currently on Brovana for her COPD. She is going to be on Lyrica for her neuropathy. She is on hydroxychloroquine for her lupus. She is on Synthroid for her hypothyroidism. The patient has been given Zithromax for antibiotics. She is having diarrhea, most likely from her lung cancer treatment. We will get a C. diff to make sure that she does not have C. diff colitis. She will most likely need to go to the transitional care unit. I will place her on Imodium. She was seen by the physical therapist yesterday and it was recommended that she go to subacute rehab. Blaine Armando MD
[2018-10-30] MEDS: Levothyroxine 125 MCG TAB PO SCH (05:59)
[2018-10-30] MEDS: Pantoprazole 40 mg EC Tab PO SCH (05:59)
[2018-10-30] MEDS: Budesonide 0.5 mg/2 ml Inhal Susp UD IH SCH ×2 (07:36→21:20)
[2018-10-30] MEDS: Arformoterol 15 mcg/2 ml Inh Sol IH SCH ×2 (07:36→21:20)
[2018-10-30 07:46] LABS: BASO # 0.01 K/mm3 (0.0-2.0); BASO % 0.2 % (0.0-3.0); EOS # 0.1 (0.0-0.7); EOS % 2.2 % (1.5-5.0); HEMOGLOBIN 11.5 g/dL (12.0-16.0); LYMPH # 0.4 (1.2-3.4); LYMPH % 10.6 % (22.0-35.0); MEAN CELL VOLUME 91.3 fl (80.0-105.0); MEAN CORPUSCULAR HEMOGLOBIN 28.5 pg (25.0-35.0); MEAN CORPUSCULAR HGB CONC 31.2 g/dl (31.0-37.0); MONO # 0.4 (0.1-0.6); MONO % 9.6 % (1.0-6.0); RBC 4.04 10^6/uL (3.5-6.1); RED CELL DISTRIBUTION WIDTH 18.3 % (11.5-14.5); WHITE BLOOD COUNT 4.2 10^3/uL (4.5-11.0)
[2018-10-30 07:55] LABS: ALB/GLOB RATIO 1.1 (1.1-1.8); ALBUMIN 3.3 g/dL (3.0-4.8); ALT/SGPT 28 U/L (7-56); AST/SGOT 36 U/L (14-36); BLOOD UREA NITROGEN 23 mg/dL (7-21); GFR NON-AFRICAN AMERICAN > 60
--- NOTE | 2018-10-30 08:47 | CP.PCM.PN ---
<Hany Ibrahim - Last Filed: 10/30/18 09:10> Subjective - Date & Time of Evaluation Date of Evaluation: 10/30/18 Time of Evaluation: 07:40 - Subjective Subjective: Hany Ibrahim- Internal Medicine Resident- Progress Note on Behalf of Dr. Armando Subjective: Patient seen and examined at bedside. States diarrhea has improved since starting imodium. States back pain has improved relative to baseline. Further denies fever, chills, abdominal pain, nausea, vomiting, and urinary symptoms. 12 point ROS negative except as indicated in the HPI Physical Examination: - Constitutional Appears: Non-toxic, No Acute Distress - Head Exam Head Exam: ATRAUMATIC, NORMOCEPHALIC - Eye Exam Eye Exam: EOMI - ENT Exam ENT Exam: Mucous Membranes Moist - Neck Exam Neck exam: Positive for: Full Rom - Respiratory Exam Respiratory Exam: no rhonchi, no wheezing - Cardiovascular Exam Cardiovascular Exam: RRR, +S1, +S2, absent: Systolic Murmur - GI/Abdominal Exam GI & Abdominal Exam: Normal Bowel Sounds, Soft. absent: Distended, Firm, Guarding, Organomegaly, Rebound, Tenderness - Extremities Exam Extremities exam: no cyanosis, no clubbing - Neurological Exam Neurological exam: Alert, Oriented x3 - Psychiatric Exam Psychiatric exam: Normal Affect, Normal Mood - Skin Skin Exam: Dry, Warm Assessment and Plan: Intractable back pain Pneumonia Hx of Breast cancer Hx of Lung cancer Hx of Lupus Hypertension Hypothyroidism Bilateral Lung fibrosis History of vertebral fracture Osteoporosis 10/28/2018 CT Chest without contrast 1. Fibrotic changes in the right middle lobe, right lower lobe, left lower lobe with more confluent airspace disease in the left lower lobe which may represent superimposed pneumonia. Small left pleural effusion. 2. Multifocal sclerotic lesions in the thoracic vertebral bodies and posterior elements as described above. Subacute healing feature in the left posterior 9th rib. These are most compatible with osteoblastic metastasis. 10/27/2018 CT Lumbar Spine without contrast 1. Severe diffuse bone demineralization. 2. Multifocal age indeterminate compression fractures in the L2, L3, L4 and L5 vertebral bodies worse at L4 with 50 % loss of vertebral height and mild posterior superior retropulsion of fracture fragment. If clinically indicated, an MRI may be performed to determine the acuity of the fractures. 3. Osteoblastic metastasis in the L1 vertebral body on the right and L2 vertebral body on the left. 4. Multilevel degenerative disc disease, worse at L4-5 with a diffuse posterior disc bulge, mild spinal canal stenosis, moderate right and mild left neural foraminal narrowing. Superimposed right far lateral disc protrusion abuts the exiting right L4 nerve root. 10/27/2018 CT Thoracic Spine without contrast 1. Multifocal osteoblastic subacute healing metastasis. In the thoracic spine with involvement of the posterior elements at T6 on the left and T8 on the righ t. There is also osteoblastic metastasis in the left posterior 6th rib. 2. Subacute healing fracture in the left posterior 9th rib. Continue duonebs, brovana. Continue norvasc for htn. Continue azathioprine and hydroxychloroquine and prednisone for lupus. Continue azithromcyin and ceftriaxone for pna. Continue levothyroxine for hypothyroidism. Continue on morphine oral solution for severe pain, tramadol for moderate pain, and tylenol for mild pain. Continue protonix. Continue imodium BID for diarrhea. C diff negative. Patient started on aldronate and calcium carbonate/vitamin D. Dispo- awaiting [facility]ISA placement Patient case reviewed with and plan approved by attending physician, Dr. Armando. Objective - Vital Signs/Intake and Output Vital Signs (last 24 hours): Temp Pulse Resp BP Pulse Ox 98.3 F 61 20 144/78 100 10/30/18 06:00 10/30/18 06:00 10/30/18 06:00 10/30/18 06:00 10/30/18 06:00 Intake and Output: 10/30/18 10/30/18 06:59 18:59 Intake Total 1200 Balance 1200 - Medications Medications: Current Medications Acetaminophen (Tylenol 325mg Tab) 650 mg PO Q4 PRN PRN Reason: Pain, Mild (1-3) Albuterol/Ipratropium (Duoneb 3 Mg/0.5 Mg (3 Ml) Ud) 3 ml IH Q2H PRN PRN Reason: Shortness of Breath Alendronate Sodium (Fosamax) 70 mg PO Q7D@0600 [facility] Amlodipine Besylate (Norvasc) 5 mg PO DAILY [facility] Last Admin: 10/29/18 10:27 Dose: 5 mg Anastrozole (Arimidex 1 Mg Tab) 1 mg PO DAILY [facility] Last Admin: 10/29/18 11:43 Dose: 1 mg Arformoterol Tartrate (Brovana) 15 mcg IH [id number] [facility] Last Admin: 10/30/18 07:36 Dose: 15 mcg Azathioprine (Imuran) 150 mg PO HS [facility] Last Admin: 10/29/18 21:22 Dose: 150 mg Azithromycin (Zithromax) 500 mg PO DAILY [facility] Budesonide (Pulmicort Respules) 0.5 mg IH [id number] [facility] Last Admin: 10/30/18 07:36 Dose: 0.5 mg Calcium/Vitamin D (Oscal-D 250 Mg-125 Units Tab) 2 tab PO DAILY [facility] Home Med (Home Med) 1 unit PO 1300 [facility] Last Admin: 10/29/18 11:59 Dose: Not Given Hydroxychloroquine Sulfate (Plaquenil) 200 mg PO DAILY [facility]; Protocol Last Admin: 10/29/18 10:27 Dose: 200 mg Ceftriaxone Sodium (Rocephin 1 Gram Ivpb) 1 gm in 100 mls @ 100 mls/hr IVPB DAILY [facility]; Protocol Last Admin: 10/29/18 10:26 Dose: 100 mls/hr Levothyroxine Sodium (Synthroid) 125 mcg PO 0600 [facility] Last Admin: 10/30/18 05:59 Dose: 125 mcg Lidocaine (Lidoderm) 1 ea TD DAILY [facility] Last Admin: 10/29/18 10:26 Dose: 1 ea Loperamide HCl (Imodium) 2 mg PO BID [facility] Last Admin: 10/29/18 17:29 Dose: 2 mg Morphine Sulfate (Morphine Oral Soln) 10 mg PO Q6H PRN PRN Reason: Pain, severe (8-10) Last Admin: 10/29/18 11:44 Dose: 10 mg Ondansetron HCl (Zofran Inj) 4 mg IVP Q6H PRN PRN Reason: Nausea/Vomiting Last Admin: 10/28/18 16:56 Dose: 4 mg Pantoprazole Sodium (Protonix Ec Tab) 40 mg PO 0700 [facility] Last Admin: 10/30/18 05:59 Dose: 40 mg Prednisone (Prednisone Tab) 20 mg PO BRK [facility] Last Admin: 10/29/18 10:27 Dose: 20 mg Pregabalin (Lyrica) 75 mg PO Q12 [facility] Last Admin: 10/29/18 21:23 Dose: 75 mg Tramadol HCl (Ultram) 50 mg PO Q8H PRN PRN Reason: Pain, moderate (4-7) - Labs Labs: 10/30/18 07:00 10/30/18 07:00 <Blaine Armando S - Last Filed: 10/30/18 10:45> Subjective - Subjective Subjective: Patient was seen and examined by me. I have reviewed the note of the paramedical aide and have gone over the plan of care. I agree with the note. I have reviewed the medications and the last labs. Objective - Vital Signs/Intake and Output Vital Signs (last 24 hours): Temp Pulse Resp BP Pulse Ox 98.3 F 61 20 144/78 100 10/30/18 06:00 10/30/18 09:33 10/30/18 06:00 10/30/18 09:33 10/30/18 06:00 Intake and Output: 10/30/18 10/30/18 06:59 18:59 Intake Total 1200 Balance 1200 - Medications Medications: Current Medications Acetaminophen (Tylenol 325mg Tab) 650 mg PO Q4 PRN PRN Reason: Pain, Mild (1-3) Albuterol/Ipratropium (Duoneb 3 Mg/0.5 Mg (3 Ml) Ud) 3 ml IH Q2H PRN PRN Reason: Shortness of Breath Alendronate Sodium (Fosamax) 70 mg PO Q7D@0600 [facility] Amlodipine Besylate (Norvasc) 5 mg PO DAILY [facility] Last Admin: 10/30/18 09:33 Dose: 5 mg Anastrozole (Arimidex 1 Mg Tab) 1 mg PO DAILY [facility] Last Admin: 10/30/18 09:52 Dose: 1 mg Arformoterol Tartrate (Brovana) 15 mcg IH [id number] [facility] Last Admin: 10/30/18 07:36 Dose: 15 mcg Azathioprine (Imuran) 150 mg PO HS [facility] Last Admin: 10/29/18 21:22 Dose: 150 mg Azithromycin (Zithromax) 500 mg PO DAILY [facility] Last Admin: 10/30/18 09:31 Dose: 500 mg Budesonide (Pulmicort Respules) 0.5 mg IH [id number] [facility] Last Admin: 10/30/18 07:36 Dose: 0.5 mg Calcium/Vitamin D (Oscal-D 250 Mg-125 Units Tab) 2 tab PO DAILY [facility] Last Admin: 10/30/18 09:32 Dose: 2 tab Home Med (Home Med) 1 unit PO 1300 [facility] Last Admin: 10/29/18 11:59 Dose: Not Given Hydroxychloroquine Sulfate (Plaquenil) 200 mg PO DAILY [facility]; Protocol Last Admin: 10/30/18 09:32 Dose: 200 mg Ceftriaxone Sodium (Rocephin 1 Gram Ivpb) 1 gm in 100 mls @ 100 mls/hr IVPB DAILY [facility]; Protocol Last Admin: 10/30/18 09:32 Dose: 100 mls/hr Levothyroxine Sodium (Synthroid) 125 mcg PO 0600 [facility] Last Admin: 10/30/18 05:59 Dose: 125 mcg Lidocaine (Lidoderm) 1 ea TD DAILY [facility] Last Admin: 10/30/18 09:33 Dose: 1 ea Loperamide HCl (Imodium) 2 mg PO BID [facility] Last Admin: 10/30/18 09:32 Dose: 2 mg Morphine Sulfate (Morphine Oral Soln) 10 mg PO Q6H PRN PRN Reason: Pain, severe (8-10) Last Admin: 10/29/18 11:44 Dose: 10 mg Ondansetron HCl (Zofran Inj) 4 mg IVP Q6H PRN PRN Reason: Nausea/Vomiting Last Admin: 10/28/18 16:56 Dose: 4 mg Pantoprazole Sodium (Protonix Ec Tab) 40 mg PO 0700 [facility] Last Admin: 10/30/18 05:59 Dose: 40 mg Prednisone (Prednisone Tab) 20 mg PO BRK [facility] Last Admin: 10/30/18 09:32 Dose: 20 mg Pregabalin (Lyrica) 75 mg PO Q12 [facility] Last Admin: 10/30/18 09:32 Dose: 75 mg Tramadol HCl (Ultram) 50 mg PO Q8H PRN PRN Reason: Pain, moderate (4-7) - Labs Labs: 10/30/18 07:00 10/30/18 07:00
[2018-10-30] MEDS: Calcium-Vit D 250 mg-125 Units Tab UD PO SCH (09:32)
[2018-10-30] MEDS: cefTRIAXone 1 gm 1 GM/100 ML BAG IVPB SCH (09:32)
[2018-10-30] MEDS: Lidocaine 5% Patch TD SCH (09:33)
[2018-10-30] MEDS: [UNRECOGNIZED DRUG - OTHER] PO SCH (17:26)
[2018-10-30 22:52] VITALS: RESP 18; O2SAT 100
--- NOTE | 2018-10-31 03:21 | DS ---
HOSPITAL COURSE: The patient was seen and examined. I do agree with the note of the clinical medical assistant. I was involved in the plan of care. The patient was admitted to the hospital because of intractable back pain. She was having difficulty in ambulating. She has metastatic lung CA. She had multiple compression fractures at L2, L3, L4, and L5. She has pathological fractures. She most likely has underlying osteoporosis as well. The patient had a CT of the chest and was seen by Pulmonary. Her pain is better controlled. She does have diarrhea most likely from the chemotherapy, states she is receiving from her oncologist from [facility]. Her C. difficile has been negative. Blood cultures and urine cultures were negative as well. She is to go to subacute rehab in [place] where her family lives. She is able to tolerate her diet. She is on morphine for pain. She is going to continue her Norvasc for hypertension. She is on prednisone daily. She is on Synthroid for her hypothyroidism. She is on Zithromax for her URI symptoms. DIET: The patient is on a heart-healthy diet. DISCHARGE INSTRUCTIONS: 1. Follow up with primary care doctor, Dr. Coppola. 2. Follow up with [facility] for her oncology followup for lung cancer. Blaine Armando MD
[2018-10-31] MEDS: Pantoprazole 40 mg EC Tab PO SCH (06:13)
[2018-10-31] MEDS: Levothyroxine 125 MCG TAB PO SCH (06:13)
[2018-10-31 07:26] LABS: EOS # 0.1 (0.0-0.7); EOS % 1.9 % (1.5-5.0); HEMOGLOBIN 11.2 g/dL (12.0-16.0); LYMPH # 0.3 (1.2-3.4); MEAN CELL VOLUME 91.3 fl (80.0-105.0); MEAN CORPUSCULAR HEMOGLOBIN 28.8 pg (25.0-35.0); MEAN CORPUSCULAR HGB CONC 31.5 g/dl (31.0-37.0); MEAN PLATELET VOLUME 9.1 fl (7.0-11.0); MONO # 0.4 (0.1-0.6); MONO % 9.4 % (1.0-6.0); RBC 3.89 10^6/uL (3.5-6.1); RED CELL DISTRIBUTION WIDTH 18.4 % (11.5-14.5); WHITE BLOOD COUNT 4.1 10^3/uL (4.5-11.0)
[2018-10-31] MEDS: Arformoterol 15 mcg/2 ml Inh Sol IH SCH (07:46)
[2018-10-31] MEDS: Budesonide 0.5 mg/2 ml Inhal Susp UD IH SCH (07:46)
[2018-10-31 07:57] LABS: ALT/SGPT 32 U/L (7-56); AST/SGOT 34 U/L (14-36); BLOOD UREA NITROGEN 20 mg/dL (7-21); CALCIUM 9.1 mg/dL (8.4-10.5); GFR NON-AFRICAN AMERICAN > 60
[2018-10-31 08:08] VITALS: BP 143/76; PULSE 59; TEMP 98.4
[2018-10-31] MEDS: Lidocaine 5% Patch TD SCH (09:36)
[2018-10-31] MEDS: cefTRIAXone 1 gm 1 GM/100 ML BAG IVPB SCH (09:36)
[2018-10-31] MEDS: Calcium-Vit D 250 mg-125 Units Tab UD PO SCH (09:40)
--- NOTE | 2018-10-31 10:57 | CP.PCM.PN ---
<Hany Ibrahim - Last Filed: 10/31/18 10:53> Subjective - Date & Time of Evaluation Date of Evaluation: 10/31/18 Time of Evaluation: 07:45 - Subjective Subjective: Hany Ibrahim- Internal Medicine Resident- Progress Note on Behalf of Dr. Armando Subjective: Patient seen and examined at bedside. States she spoke with her outpatient oncologist who recommended stopping cancer medication until diarrhea has resolved. Admits to continued improvement in her back pain. Offers no new complaints at this time. Further denies fever, chills, abdominal pain, nausea, vomiting, and urinary symptoms. 12 point ROS negative except as indicated in the HPI Physical Examination: - Constitutional Appears: Non-toxic, No Acute Distress - Head Exam Head Exam: ATRAUMATIC, NORMOCEPHALIC - Eye Exam Eye Exam: EOMI - ENT Exam ENT Exam: Mucous Membranes Moist - Neck Exam Neck exam: Positive for: Full Rom - Respiratory Exam Respiratory Exam: no rhonchi, no wheezing - Cardiovascular Exam Cardiovascular Exam: RRR, +S1, +S2, absent: Systolic Murmur - GI/Abdominal Exam GI & Abdominal Exam: Normal Bowel Sounds, Soft. absent: Distended, Firm, Guarding, Organomegaly, Rebound, Tenderness - Extremities Exam Extremities exam: no cyanosis, no clubbing - Neurological Exam Neurological exam: Alert, Oriented x3 - Psychiatric Exam Psychiatric exam: Normal Affect, Normal Mood - Skin Skin Exam: Dry, Warm Assessment and Plan: Intractable back pain Pneumonia Hx of Breast cancer Hx of Lung cancer Hx of Lupus Chronic Hypertension Chronic Hypothyroidism Bilateral Lung fibrosis History of vertebral fracture Osteoporosis 10/28/2018 CT Chest without contrast 1. Fibrotic changes in the right middle lobe, right lower lobe, left lower lobe with more confluent airspace disease in the left lower lobe which may represent superimposed pneumonia. Small left pleural effusion. 2. Multifocal sclerotic lesions in the thoracic vertebral bodies and posterior elements as described above. Subacute healing feature in the left posterior 9th rib. These are most compatible with osteoblastic metastasis. 10/27/2018 CT Lumbar Spine without contrast 1. Severe diffuse bone demineralization. 2. Multifocal age indeterminate compression fractures in the L2, L3, L4 and L5 vertebral bodies worse at L4 with 50 % loss of vertebral height and mild posterior superior retropulsion of fracture fragment. If clinically indicated, an MRI may be performed to determine the acuity of the fractures. 3. 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 4. Multilevel degenerative disc disease, worse at L4-5 with a diffuse posterior disc bulge, mild spinal canal stenosis, moderate right and mild left neural foraminal narrowing. Superimposed right far lateral disc protrusion abuts the exiting right L4 nerve root. 10/27/2018 CT Thoracic Spine without contrast 1. Multifocal osteoblastic subacute healing metastasis. In the thoracic spine with involvement of the posterior elements at T6 on the left and T8 on the right. There is also osteoblastic metastasis in the left posterior 6th rib. 2. Subacute healing fracture in the left posterior 9th rib. Continue duonebs, brovana. Continue norvasc for htn. Continue azathioprine and hydroxychloroquine and prednisone for lupus. Continue azithromcyin and ceftriaxone day 4 for pna. Continue levothyroxine for hypothyroidism. Continue on morphine oral solution for severe pain, tramadol for moderate pain, and tylenol for mild pain. Continue protonix. Continue imodium BID for diarrhea. C diff negative. Patient started on aldronate and calcium carbonate/vitamin D. Dispo- awaiting LISA placement Patient case reviewed with and plan approved by attending physician, Dr. Armando. Objective - Vital Signs/Intake and Output Vital Signs (last 24 hours): Temp Pulse Resp BP Pulse Ox 98.4 F 59 L 18 143/76 100 10/31/18 06:00 10/31/18 09:37 10/31/18 06:00 10/31/18 09:37 10/31/18 06:00 Intake and Output: 10/31/18 10/31/18 06:59 18:59 Intake Total 600 Balance 600 - Medications Medications: Current Medications Acetaminophen (Tylenol 325mg Tab) 650 mg PO Q4 PRN PRN Reason: Pain, Mild (1-3) Albuterol/Ipratropium (Duoneb 3 Mg/0.5 Mg (3 Ml) Ud) 3 ml IH Q2H PRN PRN Reason: Shortness of Breath Alendronate Sodium (Fosamax) 70 mg PO Q7D@0600 [facility] Amlodipine Besylate (Norvasc) 5 mg PO DAILY [facility] Last Admin: 10/31/18 09:37 Dose: 5 mg Anastrozole (Arimidex 1 Mg Tab) 1 mg PO DAILY [facility] Last Admin: 10/31/18 09:36 Dose: 1 mg Arformoterol Tartrate (Brovana) 15 mcg IH [id number] [facility] Last Admin: 10/31/18 07:46 Dose: 15 mcg Azathioprine (Imuran) 150 mg PO HS [facility] Last Admin: 10/30/18 21:51 Dose: 150 mg Azithromycin (Zithromax) 500 mg PO DAILY [facility] Last Admin: 10/31/18 09:35 Dose: 500 mg Budesonide (Pulmicort Respules) 0.5 mg IH [id number] [facility] Last Admin: 10/31/18 07:46 Dose: 0.5 mg Calcium/Vitamin D (Oscal-D 250 Mg-125 Units Tab) 2 tab PO DAILY [facility] Last Admin: 10/31/18 09:40 Dose: 2 tab Home Med (Home Med) 1 unit PO 1300 [facility] Last Admin: 10/30/18 17:26 Dose: Not Given Hydroxychloroquine Sulfate (Plaquenil) 200 mg PO DAILY [facility]; Protocol Last Admin: 10/31/18 09:36 Dose: 200 mg Ceftriaxone Sodium (Rocephin 1 Gram Ivpb) 1 gm in 100 mls @ 100 mls/hr IVPB DAILY [facility]; Protocol Last Admin: 10/31/18 09:36 Dose: 100 mls/hr Levothyroxine Sodium (Synthroid) 125 mcg PO 0600 [facility] Last Admin: 10/31/18 06:13 Dose: 125 mcg Lidocaine (Lidoderm) 1 ea TD DAILY [facility] Last Admin: 10/31/18 09:36 Dose: 1 ea Loperamide HCl (Imodium) 2 mg PO BID [facility] Last Admin: 10/31/18 09:35 Dose: 2 mg Morphine Sulfate (Morphine Oral Soln) 10 mg PO Q6H PRN PRN Reason: Pain, severe (8-10) Last Admin: 10/29/18 11:44 Dose: 10 mg Ondansetron HCl (Zofran Inj) 4 mg IVP Q6H PRN PRN Reason: Nausea/Vomiting Last Admin: 10/28/18 16:56 Dose: 4 mg Pantoprazole Sodium (Protonix Ec Tab) 40 mg PO 0700 [facility] Last Admin: 10/31/18 06:13 Dose: 40 mg Prednisone (Prednisone Tab) 20 mg PO BRK [facility] Last Admin: 10/31/18 09:35 Dose: 20 mg Pregabalin (Lyrica) 75 mg PO Q12 [facility] Last Admin: 10/31/18 09:35 Dose: 75 mg Tramadol HCl (Ultram) 50 mg PO Q8H PRN PRN Reason: Pain, moderate (4-7) - Labs Labs: 10/31/18 07:15 10/31/18 07:15 <Blaine Armando S - Last Filed: 10/31/18 17:49> Objective - Vital Signs/Intake and Output Vital Signs (last 24 hours): Temp Pulse Resp BP Pulse Ox 98.4 F 59 L 18 143/76 100 10/31/18 06:00 10/31/18 09:37 10/31/18 06:00 10/31/18 09:37 10/31/18 06:00 Intake and Output: 10/31/18 10/31/18 06:59 18:59 Intake Total 600 Balance 600 - Labs Labs: 10/31/18 07:15 10/31/18 07:15 Assessment and Plan - Assessment and Plan (Free Text) Plan: Pt seen and examined by me. I have reviewed the note of the certified medical coder and I agree with it. I have discussed the assessment and plan with the resident. I have reviewed the medications and the last labs.
--- NOTE | 2018-10-31 12:29 | CP.PCM.DIS ---
<Hany Ibrahim - Last Filed: 10/31/18 12:38> Provider - Provider Date of Admission: 10/27/18 14:49 Attending physician: Blaine Armando MD Primary care physician: Mike Coppola MD Consults: 10/27/18 17:28 Social Work Referral Routine Comment: breast ca, lung with mets to bone Physician Instructions: Reason For Exam: assistance a adl's Time Spent in preparation of Discharge (in minutes): 45 Hospital Course - Lab Results Lab Results: Micro Results 10/27/18 13:45 Blood Blood Culture - Preliminary NO GROWTH AFTER 3 DAYS 10/27/18 13:30 Blood Blood Culture - Preliminary NO GROWTH AFTER 3 DAYS 10/29/18 08:23 Stool C. difficile Antigen & Toxins A,B - Final 10/28/18 05:00 Urine Random Urine Culture - Final No Growth (<1,000 CFU/ML) Most Recent Lab Values WBC 4.1 10^3/uL (4.5-11.0) L 10/31/18 07:15 RBC 3.89 10^6/uL (3.5-6.1) 10/31/18 07:15 Hgb 11.2 g/dL (12.0-16.0) L 10/31/18 07:15 Hct 35.5 % (36.0-48.0) L 10/31/18 07:15 MCV 91.3 fl (80.0-105.0) 10/31/18 07:15 MCH 28.8 pg (25.0-35.0) 10/31/18 07:15 MCHC 31.5 g/dl (31.0-37.0) 10/31/18 07:15 RDW 18.4 % (11.5-14.5) H 10/31/18 07:15 Plt Count 193 10^3/uL (120.0-450.0) 10/31/18 07:15 MPV 9.1 fl (7.0-11.0) 10/31/18 07:15 Neut % (Auto) 80.7 % (50.0-68.0) H 10/31/18 07:15 Lymph % (Auto) 8.0 % (22.0-35.0) L 10/31/18 07:15 Childress % (Auto) 9.4 % (1.0-6.0) H 10/31/18 07:15 Eos % (Auto) 1.9 % (1.5-5.0) 10/31/18 07:15 Baso % (Auto) 0.0 % (0.0-3.0) 10/31/18 07:15 Lymph # (Auto) 0.3 (1.2-3.4) L 10/31/18 07:15 Childress # (Auto) 0.4 (0.1-0.6) 10/31/18 07:15 Eos # (Auto) 0.1 (0.0-0.7) 10/31/18 07:15 Baso # (Auto) 0.00 K/mm3 (0.0-2.0) 10/31/18 07:15 Absolute Neuts (auto) 3.34 (1.4-6.5) 10/31/18 07:15 Sodium 142 mmol/L (132-148) 10/31/18 07:15 Potassium 4.2 mmol/L (3.6-5.0) 10/31/18 07:15 Chloride 104 mmol/L (98-107) 10/31/18 07:15 Carbon Dioxide 32 mmol/L (21-33) 10/31/18 07:15 Anion Gap 10 (10-20) 10/31/18 07:15 BUN 20 mg/dL (7-21) 10/31/18 07:15 Creatinine 0.8 mg/dl (0.7-1.2) 10/31/18 07:15 Est GFR ( Amer) > 60 10/31/18 07:15 Est GFR (Non-Af Amer) > 60 10/31/18 07:15 Random Glucose 83 mg/dL (70-110) 10/31/18 07:15 Calcium 9.1 mg/dL (8.4-10.5) 10/31/18 07:15 Total Bilirubin 0.5 mg/dL (0.2-1.3) 10/31/18 07:15 AST 34 U/L (14-36) 10/31/18 07:15 ALT 32 U/L (7-56) 10/31/18 07:15 Alkaline Phosphatase 99 U/L (38-126) 10/31/18 07:15 Total Protein 6.1 g/dL (5.8-8.3) 10/31/18 07:15 Albumin 3.0 g/dL (3.0-4.8) 10/31/18 07:15 Globulin 3.0 gm/dL 10/31/18 07:15 Albumin/Globulin Ratio 1.0 (1.1-1.8) L 10/31/18 07:15 Procalcitonin 0.06 NG/ML (0.19-0.49) L 10/29/18 07:20 Urine Color Yellow (YELLOW) 10/28/18 05:00 Urine Appearance Clear (CLEAR) 10/28/18 05:00 Urine pH 6.0 (4.7-8.0) 10/28/18 05:00 Ur Specific White Owl 1.025 (1.005-1.035) 10/28/18 05:00 Urine Protein Negative mg/dL (<30 mg/dL) 10/28/18 05:00 Urine Glucose (UA) Negative mg/dL (NEGATIVE) 10/28/18 05:00 Urine Ketones Negative mg/dL (NEGATIVE) 10/28/18 05:00 Urine Blood Negative (NEGATIVE) 10/28/18 05:00 Urine Nitrate Negative (NEGATIVE) 10/28/18 05:00 Urine Bilirubin Negative (NEGATIVE) 10/28/18 05:00 Urine Urobilinogen 0.2 E.U./dL (<1 E.U./dL) 10/28/18 05:00 Ur Leukocyte Esterase Negative Lloyd/uL (NEGATIVE) 10/28/18 05:00 - Hospital Course Hospital Course: Patient is a 73 year old female with a past medical history of breast cancer, lung cancer, lupus, chronic hypertension, chronic hypothyroidism, bilateral lung fibrosis, vertebral fractures, and osteoporosis who was admitted for evaluation and treatment of intractable back pain. With the use of physical examinations, lab work, and imaging the patient was diagnosed with and treated for the aforementioned symptom, pneumonia, along with the patients chronic medical conditions. During their hospital stay the patient underwent a CT of the chest without contrast, CT lumbar spine without contrast, and CT thoracic spine withou t contrast which were reviewed, appreciated, and utilized in the management of the patients clinical course. Findings are listed below. Patient was treated with prn tramadol, prn morphine, prn acetamenophen, azathioprine, hydroxychloroquine, amlodipine, anastrazole, levothyroxine, dubonebs, pulmicort, prednisone, lyrica, rocephin, and azithromycin. At this time the patient is medically stable for discharge to subacute rehab. Patient understands and appreciates discharge plan. Patient instructed to follow up with primary care physicians and referrals within three to five days from discharge. Furthermore, the patient is instructed to take medications as prescribed and to return to emergency room for evaluation of new or worsening symptoms including but limited to intractable headache, fever, chills, dizziness, chest pain, shortness of breath, abdominal pain, nausea, vomiting, diarrhea, constipation, and urinary symptoms. This is a brief summary of the patients hospital course. Please see patient chart for full details. Imaging studies: 10/28/2018 CT Chest without contrast 1. Fibrotic changes in the right middle lobe, right lower lobe, left lower lobe with more confluent airspace disease in the left lower lobe which may represent superimposed pneumonia. Small left pleural effusion. 2. Multifocal sclerotic lesions in the thoracic vertebral bodies and posterior elements as described above. Subacute healing feature in the left posterior 9th rib. These are most compatible with osteoblastic metastasis. 10/27/2018 CT Lumbar Spine without contrast 1. Severe diffuse bone demineralization. 2. Multifocal age indeterminate compression fractures in the L2, L3, L4 and L5 vertebral bodies worse at L4 with 50 % loss of vertebral height and mild posterior superior retropulsion of fracture fragment. If clinically indicated, an MRI may be performed to determine the acuity of the fractures. 3. Osteoblastic metastasis in the L1 vertebral body on the right and L2 vertebral body on the left. 4. Multilevel degenerative disc disease, worse at L4-5 with a diffuse posterior disc bulge, mild spinal canal stenosis, moderate right and mild left neural foraminal narrowing. Superimposed right far lateral disc protrusion abuts the exiting right L4 nerve root. 10/27/2018 CT Thoracic Spine without contrast 1. Multifocal osteoblastic subacute healing metastasis. In the thoracic spine with involvement of the posterior elements at T6 on the left and T8 on the right. There is also osteoblastic metastasis in the left posterior 6th rib. 2. Subacute healing fracture in the left posterior 9th rib. Discharge Diagnoses Intractable back pain Pneumonia Hx of Breast cancer Hx of Lung cancer Hx of Lupus Chronic Hypertension Chronic Hypothyroidism Bilateral Lung fibrosis History of vertebral fracture Sclerotic lesions in the thoracic vertebral bodies Osteoblastic metastasis Compression fractures in the L2, L3, L4 and L5 vertebral bodies Multilevel degenerative disc disease Osteoporosis Discharge Exam - Additional Findings Additional findings: - Constitutional Appears: Non-toxic, No Acute Distress - Head Exam Head Exam: ATRAUMATIC, NORMOCEPHALIC - Eye Exam Eye Exam: EOMI - ENT Exam ENT Exam: Mucous Membranes Moist - Neck Exam Neck exam: Positive for: Full Rom - Respiratory Exam Respiratory Exam: no rhonchi, no wheezing - Cardiovascular Exam Cardiovascular Exam: RRR, +S1, +S2, absent: Systolic Murmur - GI/Abdominal Exam GI & Abdominal Exam: Normal Bowel Sounds, Soft. absent: Distended, Firm, Guarding, Organomegaly, Rebound, Tenderness - Extremities Exam Extremities exam: no cyanosis, no clubbing - Neurological Exam Neurological exam: Alert, Oriented x3 - Psychiatric Exam Psychiatric exam: Normal Affect, Normal Mood - Skin Skin Exam: Dry, Warm Discharge Plan - Discharge Medications Prescriptions: cefTRIAXone [Rocephin] 1 gm IV DAILY #1 vial Azithromycin [Zithromax] 500 mg PO DAILY #1 tab - Follow Up Plan Condition: FAIR Disposition: HOME/ ROUTINE Instructions: Pneumonia, Adult (DC), Vertebral Compression Fracture (DC), Back Precautions Additional Instructions: Patient Instructions: 1. Please take home medications as prescribed as per your medication reconciliation. 2. Follow up with your primary care physician and referrals within three to five days from discharge. 3. Please go to the nearest emergency room for evaluation of new or worsening symptoms including but limited to intractable headache, fever, chills, dizziness, chest pain, shortness of breath, abdominal pain, nausea, vomiting, diarrhea, constipation, and urinary symptoms. Referrals: Mike Coppola MD [Primary Care Provider] - <Blaine Armando - Last Filed: 10/31/18 17:49> Provider - Provider Date of Admission: 10/27/18 14:49 Attending physician: Blaine Armando MD Primary care physician: Mike Coppola MD Consults: 10/27/18 17:28 Social Work Referral Routine Comment: breast ca, lung with mets to bone Physician Instructions: Reason For Exam: assistance a adl's Hospital Course - Lab Results Lab Results: Micro Results 10/27/18 13:45 Blood Blood Culture - Preliminary NO GROWTH AFTER 4 DAYS 10/27/18 13:30 Blood Blood Culture - Preliminary NO GROWTH AFTER 4 DAYS 10/29/18 08:23 Stool C. difficile Antigen & Toxins A,B - Final 10/28/18 05:00 Urine Random Urine Culture - Final No Growth (<1,000 CFU/ML) Most Recent Lab Values WBC 4.1 10^3/uL (4.5-11.0) L 10/31/18 07:15 RBC 3.89 10^6/uL (3.5-6.1) 10/31/18 07:15 Hgb 11.2 g/dL (12.0-16.0) L 10/31/18 07:15 Hct 35.5 % (36.0-48.0) L 10/31/18 07:15 MCV 91.3 fl (80.0-105.0) 10/31/18 07:15 MCH 28.8 pg (25.0-35.0) 10/31/18 07:15 MCHC 31.5 g/dl (31.0-37.0) 10/31/18 07:15 RDW 18.4 % (11.5-14.5) H 10/31/18 07:15 Plt Count 193 10^3/uL (120.0-450.0) 10/31/18 07:15 MPV 9.1 fl (7.0-11.0) 10/31/18 07:15 Neut % (Auto) 80.7 % (50.0-68.0) H 10/31/18 07:15 Lymph % (Auto) 8.0 % (22.0-35.0) L 10/31/18 07:15 Childress % (Auto) 9.4 % (1.0-6.0) H 10/31/18 07:15 Eos % (Auto) 1.9 % (1.5-5.0) 10/31/18 07:15 Baso % (Auto) 0.0 % (0.0-3.0) 10/31/18 07:15 Lymph # (Auto) 0.3 (1.2-3.4) L 10/31/18 07:15 Childress # (Auto) 0.4 (0.1-0.6) 10/31/18 07:15 Eos # (Auto) 0.1 (0.0-0.7) 10/31/18 07:15 Baso # (Auto) 0.00 K/mm3 (0.0-2.0) 10/31/18 07:15 Absolute Neuts (auto) 3.34 (1.4-6.5) 10/31/18 07:15 Sodium 142 mmol/L (132-148) 10/31/18 07:15 Potassium 4.2 mmol/L (3.6-5.0) 10/31/18 07:15 Chloride 104 mmol/L (98-107) 10/31/18 07:15 Carbon Dioxide 32 mmol/L (21-33) 10/31/18 07:15 Anion Gap 10 (10-20) 10/31/18 07:15 BUN 20 mg/dL (7-21) 10/31/18 07:15 Creatinine 0.8 mg/dl (0.7-1.2) 10/31/18 07:15 Est GFR ( Amer) > 60 10/31/18 07:15 Est GFR (Non-Af Amer) > 60 10/31/18 07:15 Random Glucose 83 mg/dL (70-110) 10/31/18 07:15 Calcium 9.1 mg/dL (8.4-10.5) 10/31/18 07:15 Total Bilirubin 0.5 mg/dL (0.2-1.3) 10/31/18 07:15 AST 34 U/L (14-36) 10/31/18 07:15 ALT 32 U/L (7-56) 10/31/18 07:15 Alkaline Phosphatase 99 U/L (38-126) 10/31/18 07:15 Total Protein 6.1 g/dL (5.8-8.3) 10/31/18 07:15 Albumin 3.0 g/dL (3.0-4.8) 10/31/18 07:15 Globulin 3.0 gm/dL 10/31/18 07:15 Albumin/Globulin Ratio 1.0 (1.1-1.8) L 10/31/18 07:15 Procalcitonin 0.06 NG/ML (0.19-0.49) L 10/29/18 07:20 Urine Color Yellow (YELLOW) 10/28/18 05:00 Urine Appearance Clear (CLEAR) 10/28/18 05:00 Urine pH 6.0 (4.7-8.0) 10/28/18 05:00 Ur Specific [place]wl 1.025 (1.005-1.035) 10/28/18 05:00 Urine Protein Negative mg/dL (<30 mg/dL) 10/28/18 05:00 Urine Glucose (UA) Negative mg/dL (NEGATIVE) 10/28/18 05:00 Urine Ketones Negative mg/dL (NEGATIVE) 10/28/18 05:00 Urine Blood Negative (NEGATIVE) 10/28/18 05:00 Urine Nitrate Negative (NEGATIVE) 10/28/18 05:00 Urine Bilirubin Negative (NEGATIVE) 10/28/18 05:00 Urine Urobilinogen 0.2 E.U./dL (<1 E.U./dL) 10/28/18 05:00 Ur Leukocyte Esterase Negative Lloyd/uL (NEGATIVE) 10/28/18 05:00 - Hospital Course Hospital Course: Pt seen and examined by me. I have reviewed the note of the certified medical technician assistant and I agree with it. I have discussed the assessment and plan with the resident. I have reviewed the medications and the last labs.
[2018-10-31] MEDS: [UNRECOGNIZED DRUG - OTHER] PO SCH (13:02)
--- NOTE | 2018-11-01 01:35 | DS ---
HOSPITAL COURSE: The patient was seen and examined. I do agree with the note of the biomedical engineer. I was involved in the plan of care. The patient had been admitted to the hospital because of [id number] back pain. She has metastatic lesions from her lung cancer. She has pathological fractures. The patient did fairly well. She has a history of lupus. She has been taking medications from her oncologist for her cancer. The patient has multiple compression fractures in L2, L3, L4, and L5. She also has multilevel degenerative disk disease. She has osteoporosis most likely. The patient had been placed on narcotics for pain control. Her pain did improve. She is going to be discharged today and she is going to continue her pain medications as needed. She is going to follow up with her primary care doctor, Dr. Coppola. The patient is also going to be following up with her inside sales account executive and oncologist in [facility]. She has been on heart-healthy diet. I did call Dr. Galindo from [facility] yesterday. She tried to override a discharge to an acute care facility. Dr. Galindo felt that this does not require acute inpatient rehab. The patient was discharged to [facility], [place] for rehabilitation. Blaine Armando MD
== END 2018-10-31 15:10 | DRG 542 ==
LOC: ED 10:07 → ERH 14:49 → 5RSO 17:02
PROVIDERS: ADMIT Internal Medicine Nephrology; ATTEND Internal Medicine Nephrology
PROC: 3E0F7GC Introduction of Other Therapeutic Substance into Respiratory Tract, Via Natural or Artificial Opening (ICD-10-PCS; principal; 2018-10-28)
DX: C79.51 Secondary malignant neoplasm of bone (principal); J18.9 Pneumonia, unspecified organism; M84.48XA Pathological fracture, other site, initial encounter for fracture; C34.90 Malignant neoplasm of unspecified part of unspecified bronchus or lung; K52.1 Toxic gastroenteritis and colitis; J84.10 Pulmonary fibrosis, unspecified; M81.0 Age-related osteoporosis without current pathological fracture; T45.1X5A Adverse effect of antineoplastic and immunosuppressive drugs, initial encounter; I10 Essential (primary) hypertension; M32.9 Systemic lupus erythematosus, unspecified; G89.29 Other chronic pain; Z85.3 Personal history of malignant neoplasm of breast; E03.9 Hypothyroidism, unspecified; K57.30 Diverticulosis of large intestine without perforation or abscess without bleeding; M51.26 Other intervertebral disc displacement, lumbar region; M48.061 Spinal stenosis, lumbar region without neurogenic claudication; Z90.11 Acquired absence of right breast and nipple